=== PATIENT | male | born 1935 | race Caucasian/White ===

== ENCOUNTER 2017-06-23 17:53 | Observation (INO) ==
--- NOTE | 2017-06-23 18:29 | Emergency Department Note ---
Back Pain HPI - General Chief Complaint: Back Pain/Injury Stated Complaint: Weakness, immobility, back surgery yesterday. Time Seen by Provider: 06/23/17 18:28 Source: patient Limitations: no limitations - History of Present Illness HPI Narrative: This 81-year-old male comes to the emergency room after being checked out of the hospital today around 4 PM. He arrives in the hospital ER a little before 6 PM. He reports having a decompression spine surgery by Dr. Jackson yesterday. He was able to get up a couple of times afterwards, standing at bedside and using a walker. His right leg sometimes would give out. His left leg was not always strong enough to hold him but it was felt that he was able to use his walker at home adequately and safely. However, from being discharged in the hospital, in his driveway, trying to use his walker etc., he had his leg buckle again and he went to the ground and was on the ground for 15 or 20 minutes while his grandson summoned another grandson to get him up at least sitting on a cooler. EMS was summoned to bring him to the emergency room. He has difficulty raising his right knee as far as with strength. His surgery was because of multiple back problems and difficulties with walking any significant distance, walking hunched over, arthritis, ruptured disks, impingement. ROS: General: No fevers chills or sweats. No chest pain Some cough but no shortness of breath No abdominal pain nausea vomiting diarrhea or constipation No dysuria No rashes No headaches but some weakness as described above. He had no loss of consciousness. He is not on any blood thinners. Denies anxiety and depression. Has had significant fatigue. - Related Data Home Medications Medication Instructions Recorded Confirmed mycophenolate mofetil 500 mg tablet See Dose Instructions PO .COMPLEX 01/04/15 06/23/17 tab pyridostigmine bromide 60 mg tablet 120 mg PO TID tab 01/04/15 06/23/17 Oxybutynin Chloride [Oxybutynin 10 mg PO HS 06/23/17 06/23/17 Chloride ER] Previous Rx's Medication Instructions Recorded metoprolol tartrate 25 mg tablet 12.5 mg PO BID #90 tab 09/16/16 levothyroxine 88 mcg tablet 88 mcg PO QDAY #90 tab 05/15/17 HYDROcodone/APAP 10/325MG [Graford 1 - 2 tab PO Q4H PRN #50 tab 06/22/17 10/325Mg] Cephalexin [Keflex] 500 mg PO QID 5 Days #20 cap 06/23/17 Allergies Allergy/AdvReac Type Severity Reaction Status Date / Time Penicillins Allergy Intermediate Hives Verified 06/18/17 11:00 levofloxacin [From Levaquin] AdvReac Severe Contraindicated Verified 06/18/17 11 :00 r/t Myasthenia Gravis egg AdvReac Mild Nasal Verified 06/23/17 20:13 congestion lisinopril AdvReac Mild Cough Verified 06/23/17 20:13 milk AdvReac Mild Nasal Verified 06/23/17 20:13 congestion wheat AdvReac Mild Nasal Verified 06/23/17 20:13 congestion Yeast AdvReac Mild Nasal Verified 06/23/17 20:13 Congestion Past Medical History - Past Medical History Medical history: Reports: asthma, COPD, DM (But here today denies this.), hyperlipidemia, hypertension, obesity, osteoporosis, peripheral artery disease, thyroid disease, other (Myasthenia gravis for which he takes Mestinon and CellCept.). Denies: cancer, CVA, myocardial infarction, renal disease, TIA Psychiatric history: Denies: anxiety, depression Surgical history ED: Reports: orthopedic, other (Decompression lumbar spine, 06-22, Dr. Jackson. Fusion of lower lumbar segment 1972), tonsillectomy (And adenoidectomy), other (2 prostate ablations. ) - Social History smoking status: Never smoker (But had a lot of secondhand exposure.) Alcohol use: Reports: Rarely (2-3 times per month) Physical Exam Limitations: no limitations General appearance: alert, in no apparent distress Head: atraumatic, normocephalic Eye: Present: normal appearance, PERRL, EOMI. Absent: scleral icterus, conjunctival injection ENT: normal oropharynx, mucous membranes moist, other (Normal midline structures ) Neck: Present: trachea midline. Absent: lymphadenopathy, thyromegaly Respiratory: Present: normal lung sounds bilaterally. Absent: respiratory distress, wheezes, stridor, accessory muscle use, prolonged expiratory phase Cardiovascular: Present: regular rate, normal rhythm. Absent: systolic murmur, diastolic murmur Abdominal: Present: soft. Absent: distention, tenderness, guarding, rebound, rigidity, organomegaly, mass Neurological: Present: alert, oriented X3, other (Has decrease in his hip flexors on the right compared to the left.) Psychiatric: Present: normal affect, normal mood Skin: Present: warm, dry Course Vital Signs Temperature 98.4 F 06/23/17 17:55 Pulse Rate 82 06/23/17 17:55 Respiratory Rate 18 06/23/17 17:55 Blood Pressure 144/126 06/23/17 17:55 Pulse Oximetry (%) 95 06/23/17 17:55 Temperature 97.6 F 06/24/17 06:21 Pulse Rate 64 06/24/17 04:00 Respiratory Rate 18 06/24/17 06:21 Blood Pressure 165/55 06/24/17 06:21 Pulse Oximetry (%) 93 06/24/17 07:42 Back Pain/Injury - MDM Narrative Medical decision making narrative: I discussed case with Dr. Jackson who recommended MRI which was eventually able to be done here in this hospital and did not find additional compressive structures or concerns or problems. Dr. Jackson's PA, Adolfo, kindly reviewed and accepted this patient's care inpatient for Dr. Jackson for at least an overnight stay to reevaluate and arrange additional follow-up and/or treatment. Disposition Pt seen by FABRIC WORKER/PA only: No Clinical Impression: Weakness, Status post lumbar spine surgery for decompression of spinal cord Fall Qualifiers: Encounter type: initial encounter Qualified Code(s): W19.XXXA - Unspecified fall, initial encounter Disposition: Xfer As Outpt/Obs ([facility]) Condition: Fair
[2017-06-23] MEDS ORDERED: METHOCARBAMOL 750 MG TABLET PO PRN (19:03)
--- NOTE | 2017-06-23 20:29 | Consultation ---
DATE OF CONSULTATION: 06/23/[address] Emergency [address] Dr. Eliezer Jackson on the patient, an 81-year-old male. ADMITTING DIAGNOSIS: Back pain, post-lumbar spinal surgery with right lower extremity weakness. HISTORY OF PRESENT ILLNESS: This pleasant 81-year-old male was discharged from the Med/Surg at [facility] earlier today following a lumbar decompression surgery at L5 by Dr. Eliezer Jackson. The patient was discharged in a stable condition, and upon arriving home was transferring out of the vehicle and developed significant right leg weakness which rendered him unable to stand. Two of his grandsons were then able to help get him back to his feet. He continued to complain of significant right-sided weakness that never went away, and for that reason, the family members, including his 2 daughters, transported him back to [facility] emergency department for further evaluation. The patient was evaluated in the emergency department and found to be stable, other than some noticeable right-sided lower extremity weakness and did not complain of other remarkable review of systems, which included no fever, sweats, chills, chest pain, syncope, shortness of breath, abdominal pain, nausea, vomiting, diarrhea, melena, hematochezia, slurred speech, or other remarkable review of systems, other than positive review of systems mentioned previously. HOME MEDICATIONS: Mycophenolate mofetil 500 mg tablets. Pyridostigmine bromide 60 mg tablets 3 times a day. Metoprolol. Oxybutynin. Levothyroxine. Hydrocodone. Was on Keflex. ALLERGIES: The patient has known allergies to PENICILLINS, EGGS, MILK, WHEAT, LEVOTHYROXINE, LISINOPRIL and LUU'S YEAST. FAMILY HISTORY: Remarkable for diabetes, hyperlipidemia, hypertension, peripheral artery disease, osteoporosis, asthma, thyroid disease, COPD. SURGICAL HISTORY: Includes prior lumbar fusion surgery with lumbar decompression as well as 2 prostate ablation surgeries. SOCIAL HISTORY: Includes he has a who is also disabled and two daughters that are currently looking after him. He is a nonsmoker and rarely uses alcohol. PHYSICAL EXAMINATION: GENERAL: Demonstrates a well-developed, well-nourished 81-year-old male, awake, alert, oriented times 3. Appears to be in no apparent distress, sitting comfortably upon the gurney. VITAL SIGNS: Upon initial evaluation, his vital signs are stable. Temperature 98.4, pulse 82, respirations 18, blood pressure 144/126, pulse oximetry 95 percent on room air. Vitals were repeated serially in the ED and remained stable. HEENT: Head was normocephalic. Pupils equal, round, reactive to light. No nystagmus or strabismus. EOMs within normal limits. Oropharynx was normal with normal gag reflex. He had grossly intact normal cranial nerve function. NECK: Supple. No adenopathy or thyromegaly. LUNGS: Clear to auscultation. No wheezing. No rhonchi or rales. CARDIAC: Normal sinus rhythm. No gallops, rubs, or murmurs. ABDOMEN: Soft and nontender. MUSCULOSKELETAL EXAM: The patient did have noticeably weaker hip flexors in the right lower extremity with quad function and hamstring function. Would grade this all 3/5 compared to 4+/5 on the left side. He did have grossly intact dorsiflexor and plantarflexors, EHLs. He had no ankle clonus or myelopathic findings on examination. MEDICAL DECISION MAKING AND EMERGENCY ROOM COURSE: We were able to get the patient in for a stat lumbar MRI to rule out a postsurgical epidural hematoma or other recurrent neural foraminal stenotic lesion that could be contributing to this. This was set up. The patient was taken down to MRI immediately and evaluated there. Dr. Jackson has been involved in the patient's care and his recommendation was to have the patient admitted to the Med/Surg hospital floor overnight for observation and to have a Hospitalist consult to manage his medications. Further orthopedic spine surgical recommendations will be made here after assessment, one day posthospital discharge following lumbar decompression surgery by Dr. Jackson with acute onset of right lower extremity motor weakness. PLAN: MRI pending results at this time and admit to the hospital floor. BAP:[email or web address] Job ID: [id number] Doc ID: [id number] Luis Mendoza PA-C
--- NOTE | 2017-06-23 20:34 | Orthopedic Progress Note ---
Subjective Patient information: Note initiated : 06/23/17 at 8:31 pm Service Date, if different from initiated Date: [] Patient: Issac Upton 81 y/o M admitted on 06/23/17 for Weakness, immobility , back surgery yesterday.. Chief Complaint: patient presents with R LE weakness to hip flexion. In post surgery yesterday he reports to have ambulated to bathroom with minimal assistance and no weakness R LE. weakness then increased several hours post recovery. Today at home he fell and had ongoing weakness Objective Vital signs: Vital Signs Temp Pulse Resp BP Pulse Ox 06/23/17 18:46 76 141/71 94 06/23/17 18:35 68 138/64 95 06/23/17 17:55 98.4 F 82 18 144/126 95 Intake and Output 06/23/17 06/23/17 06/23/17 05:59 13:59 21:59 Other: Weight 235 lb Patient Weight 06/24/17 05:59 Weight 235 lb Intake & Output: Intake & Output 06/23/17 06/23/17 06/23/17 05:59 13:59 21:59 Weight 235 lb Neurological exam IM: Yes motor sensory deficit (weakness to hip flexion) Assessment and Plan (1) Spinal stenosis of lumbar region unexplained weakness. admitted as patient unable to care for self. MRI shows no hematoma or increased areas of neural compression. He does have extensive degenerative changes and disc herniations, but fairly well decompressed around these. overall improved canal dimensions. will observe. Status: Acute
[2017-06-23] MEDS ORDERED: HYDROcodone/APAP 10/325MG TABLET PO PRN (21:42)
[2017-06-23] MEDS: DOCUSATE SODIUM 100 MG CAPSULE PO SCH (22:48)
[2017-06-23] MEDS: METOPROLOL TARTRATE 25 MG TABLET PO SCH (22:48)
[2017-06-23] MEDS: OXYBUTYNIN CHLORIDE 5 MG TAB.XL.24H PO SCH (22:48)
[2017-06-23] MEDS: MYCOPHENOLATE 250 MG CAPSULE PO SCH (22:49)
[2017-06-23] MEDS: predniSONE 20 MG TABLET PO SCH (22:55)
--- NOTE | 2017-06-24 06:56 | Orthopedic Progress Note ---
Subjective Patient information: Note initiated : 06/24/17 at 6:53 am Service Date, if different from initiated Date: [] Patient: Issac Upton 81 y/o M admitted on 06/23/17 for Weakness, immobility , back surgery yesterday.. Chief Complaint: [RLE weakness, S/P lumbar decompression] Patient was readmitted due to RLE weakness s/p lumbar decompression. His weakness does seem to be approving though he has not ambulated. He denies any lower extremity paresthesias, bowel/bladder incontinence, or saddle anesthesias. Objective Vital signs: Vital Signs Temp Pulse Pulse Resp BP BP Pulse Ox 06/24/17 06:21 97.6 F 18 165/55 95 06/24/17 04:00 97.2 F 64 12 160/74 93 06/23/17 23:35 99.1 F H 71 12 135/65 93 06/23/17 18:46 76 141/71 94 06/23/17 18:35 68 138/64 95 06/23/17 17:55 98.4 F 82 18 144/126 95 Intake and Output 06/23/17 06/24/17 06/24/17 21:59 05:59 13:59 Intake Total 590 / 590 Output Total 1680 / 1680 450 / 450 Balance -1090 / -1090 -450 / -450 Intake: Oral 590 / 590 Output: Drainage 55 / 55 Back 55 / 55 Void Amount 1625 / 1625 450 / 450 Other: # Voids 1 1 Weight 235 lb Intake & Output: Intake & Output 06/23/17 06/24/17 06/24/17 21:59 05:59 13:59 Intake Total 590 / 590 Output Total 1680 / 1680 450 / 450 Balance -1090 / -1090 -450 / -450 Weight 235 lb Intake: Oral 590 / 590 Output: Drainage 55 / 55 Back 55 / 55 Void Amount 1625 / 1625 450 / 450 Other: # Voids 1 1 Incision: Yes healing, Yes clean and dry Incision clean and dry: Yes Dressing: Yes clean, Yes dry, Yes intact Neurological exam IM: Yes alert, Yes motor sensory intact, Yes neurovascular intact (He does have weakness with hip flexion of the RLE.) Extremities exam IM: Yes neurovascular intact Assessment and Plan (1) Spinal stenosis of lumbar region MRI does not show any acute changes s/p lumbar decompression. Ambulate with PT today. D/c drain and replace with dry dressing. Status: Acute
[2017-06-24] MEDS: LEVOTHYROXINE 88 MCG TABLET PO SCH (07:06)
[2017-06-24] MEDS: METOPROLOL TARTRATE 25 MG TABLET PO SCH ×2 (09:01→21:27)
[2017-06-24] MEDS: predniSONE 20 MG TABLET PO SCH ×2 (09:01→17:17)
[2017-06-24] MEDS: DOCUSATE SODIUM 100 MG CAPSULE PO SCH ×2 (09:01→21:27)
[2017-06-24] MEDS: PYRIDOSTIGMINE 60 MG TABLET PO SCH ×3 (09:03→21:30)
[2017-06-24] MEDS: MYCOPHENOLATE 250 MG CAPSULE PO SCH ×2 (13:07→23:57)
[2017-06-24] MEDS: CEPHALEXIN 250 MG CAPSULE PO SCH ×3 (13:07→21:28)
[2017-06-24] MEDS: OXYBUTYNIN CHLORIDE 5 MG TAB.XL.24H PO SCH (21:27)
--- NOTE | 2017-06-25 07:49 | Orthopedic Progress Note ---
Subjective Patient information: Note initiated : 06/25/17 at 7:45 am Service Date, if different from initiated Date: [] Patient: Issac Upton 81 y/o M admitted on 06/23/17 for Weakness, Immobility , Back Surgery Yesterday. Chief Complaint: [] walked better yesterday afternoon. continues to have R LE weakness. no good explanation Objective Vital signs: Vital Signs Temp Pulse Pulse Resp BP BP Pulse Ox 06/25/17 07:18 97.7 F 61 18 144/73 95 06/25/17 07:02 60 06/25/17 04:00 98.9 F 58 L 18 141/76 96 06/25/17 00:00 99.0 F H 62 16 151/74 94 06/24/17 20:00 99.2 F H 64 18 146/75 93 06/24/17 15:34 98.9 F 18 138/69 95 06/24/17 12:00 98.3 F 18 167/83 95 Intake and Output 06/24/17 06/25/17 06/25/17 21:59 05:59 13:59 Intake Total 800 / 800 200 / 200 Output Total 550 / 550 475 / 475 Balance 250 / 250 -275 / -275 Intake: Oral 800 / 800 200 / 200 Output: Void Amount 550 / 550 475 / 475 Other: Weight 234 lb Intake & Output: Intake & Output 06/24/17 06/25/17 06/25/17 21:59 05:59 13:59 Intake Total 800 / 800 200 / 200 Output Total 550 / 550 475 / 475 Balance 250 / 250 -275 / -275 Weight 234 lb Intake: Oral 800 / 800 200 / 200 Output: Void Amount 550 / 550 475 / 475 Neurological exam IM: Yes motor sensory deficit (R LE weakness, yesterday did not have real obvious quad weakness but 4/5 this AM. ) Assessment and Plan (1) Spinal stenosis of lumbar region unexplained weakness. admitted as patient unable to care for self. MRI shows no hematoma or increased areas of neural compression. He does have extensive degenerative changes and disc herniations, but fairly well decompressed around these. overall improved canal dimensions. will observe. Continued weakness but seems to fluctuate with severity? Do not feel there is any intervention to consider. continue therapy and ambulation. will try knee ranger locked Status: Acute
[2017-06-25 08:54] LABS: Mean Cell Volume 91.8 fL (80.0-100.0); Mean Corpuscular HGB Conc 32.7 g/dL (31.0-36.0); Platelet Count 243 K/mcL (140-440); RBC 4.83 M/mcL (4.50-5.90); Red Cell Distribution Width 15.1 % (11.5-14.5)
[2017-06-25 09:27] LABS: ALT/SGPT 15 U/l (0-40); Albumin 4.5 gm/dL (3.2-5.2); Albumin/Globulin Ratio 1.3 (1.0-2.3); Alkaline Phosphatase 74 U/L (39-117); Blood Urea Nitrogen 26 mg/dl (8-23)
[2017-06-25 09:31] LABS: Lymphocytes % 11 % (15-49); Monocytes % (Manual) 6 % (1-12); Platelet Estimate NORMAL (NORMAL); RBC Morphology NORMAL (NORMAL); Segmented Neutrophils % 82 % (38-78)
[2017-06-25] MEDS: predniSONE 20 MG TABLET PO SCH ×2 (09:35→17:33)
[2017-06-25] MEDS: DOCUSATE SODIUM 100 MG CAPSULE PO SCH ×2 (09:35→20:04)
[2017-06-25] MEDS: METOPROLOL TARTRATE 25 MG TABLET PO SCH ×2 (09:35→20:05)
[2017-06-25] MEDS: CEPHALEXIN 250 MG CAPSULE PO SCH ×4 (09:36→20:05)
[2017-06-25] MEDS: PYRIDOSTIGMINE 60 MG TABLET PO SCH ×3 (09:37→20:05)
[2017-06-25] MEDS: LEVOTHYROXINE 88 MCG TABLET PO SCH (09:40)
--- NOTE | 2017-06-25 10:18 | Magnetic Resonance Report ---
CLINICAL INFORMATION: Postop multilevel decompression laminectomy. Right leg pain and bladder incontinence COMPARISON: Preoperative lumbar MRI - 04/27/2017 TECHNIQUE: Sagittal T1 FLAIR, STIR, fast spin echo T2, axial T2 weighted images were acquired. FINDINGS: The lumbar spine remains anatomically aligned. There are now wide decompression laminectomy changes at L2-3 and L3-4 with minimal edema at the surgical site. No associated marrow signal abnormality. Conus medullaris ends at T12 and is homogeneous signal. Cauda equina roots are normal. There is marked distention of the urinary bladder. There is also a 11 mm cyst inferior right kidney. At T11-T12, a moderate broad disc extrusion mildly impinges the thecal sac which is unchanged At T12-L1, a moderate broad disc protrusion impinges the thecal sac resulting in mild central canal stenosis. This is unchanged. At L1-2, mild broad disc protrusion with left-sided asymmetry is appreciated. At this level, there is also a moderate extruded component dissecting inferiorly beneath the posterior longitudinal ligament. This is new from the previous study and does impinge the thecal sac and the left cauda equina roots. At L2-3, moderate broad disc protrusion with right-sided asymmetry results in mild right lateral recess/IV foraminal narrowing mildly impinging the exiting right L2 and descending right L3 nerve root. This is unchanged. Central canal appears capacious following decompression laminectomy. At L3-4, moderate broad disc protrusion with left-sided asymmetry results in moderate left IV foraminal narrowing impinging the exiting left L3 nerve root - this is unchanged. Central canal is capacious following decompression laminectomy. At L4-5, there is mild annular bulge. There is marked facet arthropathy resulting in moderate central canal narrowing but this is unchanged. At L5-S1, moderate broad disc protrusion facet arthropathy results in mild central canal and bilateral lateral recess and IV foraminal narrowing. IMPRESSION: 1. Interval L2-3 and L3-4 decompression laminectomies - typical postoperative change. Central canal at each of these levels is now capacious 2. L1-2: Broad disc protrusion with a new large extruded component dissecting inferiorly in the the posterior longitudinal ligament with impinges the left anterior thecal sac and the left anterior cauda equina roots. 3. Multilevel degenerative change in the remaining levels as described 4. Marked distention of the urinary bladder. Interpreted and Authenticated by: Nhan Moncada 06/25/17
[2017-06-25] MEDS: MYCOPHENOLATE 250 MG CAPSULE PO SCH (11:52)
--- NOTE | 2017-06-25 16:05 | XRay Report ---
CLINICAL INFORMATION: Cough COMPARISON: 09/11/2016 FINDINGS: Borderline cardiomegaly is unchanged. Mediastinum and pulmonary vessels are normal for the lungs are clear. No effusions. Bones soft tissues are normal IMPRESSION: Hairline cardiomegaly Interpreted and Authenticated by: Nhan Moncada 06/25/17
[2017-06-25 18:33] LABS: Appearance,Urine CLEAR; Bilirubin,Urine NEG (NEG); Color,Urine STRAW; Glucose,Urine (UA) NEGATIVE (NEG); Leukocyte Esterase,Urine NEG /uL (NEG); Protein,Urine NEG (NEG); Specific Gravity,Urine 1.015 (1.000-1.035); Urine Blood NEG mg/dL (<0.03); Urobilinogen,Urine NEG (NEG)
[2017-06-25] MEDS: OXYBUTYNIN CHLORIDE 5 MG TAB.XL.24H PO SCH (20:05)
[2017-06-26] MEDS: MYCOPHENOLATE 250 MG CAPSULE PO SCH
[2017-06-26] MEDS ORDERED: HYDROcodone/APAP 10/325MG TABLET PO PRN (06:54)
[2017-06-26] MEDS: predniSONE 20 MG TABLET PO SCH (08:12)
[2017-06-26] MEDS: METOPROLOL TARTRATE 25 MG TABLET PO SCH (08:12)
[2017-06-26] MEDS: DOCUSATE SODIUM 100 MG CAPSULE PO SCH (08:12)
[2017-06-26] MEDS: CEPHALEXIN 250 MG CAPSULE PO SCH (08:13)
[2017-06-26] MEDS: LEVOTHYROXINE 88 MCG TABLET PO SCH (08:21)
[2017-06-26] MEDS: PYRIDOSTIGMINE 60 MG TABLET PO SCH (08:22)
--- NOTE | 2017-06-26 08:22 | Discharge Summary ---
DATE OF ADMISSION: 06/23/2017 DATE OF DISCHARGE: ADMITTING DIAGNOSIS: Lumbar stenosis with neurogenic claudication. DISCHARGE DIAGNOSIS: Lumbar stenosis with neurogenic claudication. REASON FOR ADMISSION: Patient admitted for operative treatment of above. ADMITTING PHYSICIAN: Eliezer Jackson M.D. CONSULTING PHYSICIAN: None, although Dr. Nico Falcon did see the gentleman in the hospital and provided assistance. PROCEDURE: Patient was taken to the operating room on the date of admission where he underwent a lumbar decompression L1 through L4. HOSPITAL COURSE: The patient was admitted for his surgical procedure. The surgery went well and was uneventful without complication. He was then transferred to post-recovery, and the patient apparently ambulated to the bathroom on several occasions with__ __ difficulty. However, I was called just prior to his discharge with the suggestion that the patient felt that his right leg was weak, and he was having a hard time bearing weight on the right lower extremity. I evaluated this patient. He had some vague pain with hip flexion and some vague weakness. We elected to keep him overnight for observation. The next morning he was continuing with said weakness but expected that this would continue to resolve spontaneously, and the patient was discharged to home. He then re-presented several hours later with a chief complaint of being unable to bear weight and the leg had caused him to be nearly fallen on several occasions. He was again placed in the hospital as he really had no care at home, and evaluation to include a lumbar MRI scan was done. The MRI scan showed a very adequate decompression. He does have extensive degenerative changes with some disc herniations that we specifically did not address surgically, and these were not something that we felt we should go after surgically. He was gradually mobilized with physical therapy and has made some progress with strength. We did try a knee ranger locked in extension as he seems to have some vague quad weakness as well. 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 The explanation for his weakness is still not understood. He nonetheless does seem to have made some progress, is able to ambulate with a walker, but does have pain with initiating forward flexion of the hip and again weakness. The weakness is hard to understand if this is from pain inhibition or true weakness but it has caused his leg to give way, and he is still somewhat limited in his ability to ambulate. The patient is now transferred to a care facility for further rehabilitation. I will see him back in the office on discharge from rehabilitation facility. KRISTIE:zoe Job ID: [id number] Doc ID: [id number] Eliezer Jackson MD
[2017-06-26] MEDS ORDERED: METOPROLOL TARTRATE 25 MG TABLET PO SCH (09:00)
[2017-06-26] MEDS ORDERED: LEVOTHYROXINE 88 MCG TABLET PO SCH (09:00)
[2017-06-26] MEDS ORDERED: PYRIDOSTIGMINE 60 MG TABLET PO SCH (09:00)
[2017-06-26] MEDS ORDERED: OXYBUTYNIN CHLORIDE PO SCH (21:00)
--- NOTE | 2017-06-27 16:32 | Magnetic Resonance Report ---
CLINICAL INFORMATION: Pain right SI joint COMPARISON: Pelvic MRI from 10 months prior - 08/25/2016. TECHNIQUE 10 cm [id number] axial T1 and T2 coronal T1-T2 and STIR sagittal T1 and T2-weighted images obtained through the sacrum. Axial T1 and coronal STIR images were obtained the entire pelvis FINDINGS: In the former region of high signal within the right sacral ala, there is now a smaller (3.7 cm) region of low signal with extension to the posterior right SI joint and the periarticular ileum. The posterior aspect of the SI joint is widened - suspect granulation tissue or fibrosis in this region. The left SI joint is unremarkable. Both hips are normal. There is been near complete normalization of signal within the right superior pubic ramus and pubic symphysis A massive (13 cm) cyst projects from the inferior pole right kidney which is stable. Prostate is unremarkable measurin.9 x 5.7 cm. The visualized small and large bowel is normal. Signal within the muscle and fascial planes has largely normalized previous study. There is a small region of increased signal in the right lateral gluteal musculature which is unchanged IMPRESSION: Moderate (3.7 cm) region of low signal in the periarticular right sacral ala with extension into the SI joint and periarticular right ilium. Previously, this represented high signal. This would imply that the active inflammation, previously seen in this region, has subsided has evolved into calcification or fibrosis. If the patient does have pain specifically to the right SI joint on physical exam, then consider CT-guided aspiration of the SI joint and concomitant injection glucocorticoids and Marcaine. This may be both diagnostic and therapeutic value Interpreted and Authenticated by: Nhan Moncada 06/27/17
== END 2017-06-26 10:20 ==
LOC: ED 17:53 → MEDSUR 20:04 → INTOOBSV 20:04
PROVIDERS: ADMIT Orthopaedic Surgery Orthopaedic Surgery of the Spine; ATTEND Orthopaedic Surgery Orthopaedic Surgery of the Spine

== ENCOUNTER 2017-08-24 20:34 | Inpatient (IN) ==
[2017-08-24] MEDS: 0.9 % SODIUM CHLORIDE 1,000 ML IV SCH (21:32)
--- NOTE | 2017-08-24 22:01 | Emergency Department Note ---
General Adult HPI - General Chief complaint: Urogenital-Male Stated complaint: Thinks has bladder infection Time Seen by Provider: 08/24/17 20:51 Mode of arrival: wheelchair - History of Present Illness HPI Narrative: 82YOM presents to the clinic for increased frequency of urination and "ice cold " chills. States that back in February he has a similar complaint and he was brought into the ER and was found to be septic. Admitted at [facility] for 4 days and then sent home. Family is with him here today and is concerned that he is septic based on their last episode with similar urinary symptoms. He reports increased frequency, dribbling, as well as decreased R leg strength and family reports brain fog and not quite being himself. Hx of myasthenia gravis, sepsis , UTI, and back surgery that was 3 months ago. Is not consistent with medical interventions. (entered by HARISH Salguero, agree with HPI- NE) Associated symptoms: Reports: loss of appetite, malaise, weakness. Denies: cough, shortness of breath, syncope - Related Data Home Medications Medication Instructions Recorded Confirmed mycophenolate mofetil 500 mg tablet See Dose Instructions PO .COMPLEX 01/04/15 08/24/17 tab pyridostigmine bromide 60 mg tablet 120 mg PO TID tab 01/04/15 08/24/17 Gabapentin [Neurontin] 300 mg PO TID 08/24/17 08/24/17 Previous Rx's Medication Instructions Recorded metoprolol tartrate 25 mg tablet 12.5 mg PO BID #90 tab 09/16/16 levothyroxine 88 mcg tablet 88 mcg PO QDAY #90 tab 05/15/17 oxybutynin chloride ER 10 mg 10 mg PO HS #90 tab 07/31/17 tablet,extended release 24 hr Allergies Allergy/AdvReac Type Severity Reaction Status Date / Time Penicillins Allergy Intermediate Hives Verified 08/10/17 13:28 levofloxacin [From Levaquin] AdvReac Severe Contraindicated Verified 08/10/17 13 :28 r/t Myasthenia Gravis egg AdvReac Mild Nasal Verified 08/10/17 13:28 congestion lisinopril AdvReac Mild Cough Verified 08/10/17 13:28 milk AdvReac Mild Nasal Verified 08/10/17 13:28 congestion wheat AdvReac Mild Nasal Verified 08/10/17 13:28 congestion Yeast AdvReac Mild Nasal Verified 08/10/17 13:28 Congestion Review of Systems All systems ED: reviewed and negative except as stated. 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) Spinal stenosis of lumbar region (Chronic) Acute prostatitis with hematuria (Resolved) Tinnitus (Chronic) Tachycardia (Chronic) Sinusitis (Resolved) Rhinitis, chronic (Chronic) RAD (reactive airway disease) (Chronic) PVD (peripheral vascular disease) (Chronic) Patent foramen ovale (Chronic) Paresthesias (Chronic) Orthostasis (Chronic) Obesity (Chronic) Myasthenia gravis without (acute) exacerbation (Chronic) Muscle cramps (Chronic) IBS (irritable bowel syndrome) (Chronic) Hypothyroidism (Chronic) Hypertension, essential, benign (Chronic) Hyperlipidemia (Chronic) Hemorrhoids (Chronic) Hearing loss (Chronic) Headache (Chronic) Osteoarthritis of lumbar spine (Chronic) Diverticulosis of colon (Chronic) 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) DM type 2 (diabetes mellitus, type 2) (Chronic) DDD (degenerative disc disease) (Chronic) Cough (Chronic) Cellulitis and abscess of trunk (Resolved) Bronchitis, acute (Resolved) Asthma (Chronic) Allergic rhinitis (Chronic) Diverticulitis of colon (Inactive) Methicillin susceptible Staphylococcus aureus infection (Inactive) Past Surgical History (Last Reviewed 08/10/17 @ 13:29 by Gilma Phillips RN) History of colonoscopy (Chronic) Hx of decompressive lumbar laminectomy (Acute) H/O Spinal surgery (Resolved) S/P tonsillectomy and adenoidectomy (Resolved) History of back surgery (Inactive) History of lumbar fusion (Inactive) History of toe surgery (Inactive) History of tonsillectomy (Inactive) Medical history: Reports: asthma, COPD, DM (But here today denies this.), hyperlipidemia, hypertension, obesity, osteoporosis, peripheral artery disease, thyroid disease, other (Myasthenia gravis for which he takes Mestinon and CellCept.). Denies: cancer, CVA, myocardial infarction, renal disease, TIA Surgical history ED: Reports: orthopedic, other (Decompression lumbar spine, 06-22, Dr. Jackson. Fusion of lower lumbar segment 1972), tonsillectomy (And adenoidectomy), other (2 prostate ablations. ) - Social History smoking status: Never smoker Alcohol use: Reports: Rarely (2-3 times per month) Drug use: Reports: none Course Course Narrative: @ [address] Garcia and Dr. Garcia to assume care due to shift change. Vital Signs Temperature 98.4 F 08/24/17 20:35 Pulse Rate 97 H 08/24/17 20:35 Respiratory Rate 18 08/24/17 20:35 Blood Pressure 100/56 08/24/17 20:35 Pulse Oximetry (%) 93 08/24/17 20:35 Temperature 98.4 F 08/24/17 20:35 Pulse Rate 97 H 08/24/17 20:35 Respiratory Rate 18 08/24/17 20:35 Blood Pressure 100/56 08/24/17 20:35 Pulse Oximetry (%) 93 08/24/17 20:35 Medical Decision Making - Lab Data Result diagrams: 08/24/17 21:18 08/24/17 21:18 Disposition Pt seen by HOLLOW CORE DOOR FRAME ASSEMBLER/PA only: No Condition: Fair Referrals: Nico Falcon MD [Primary Care Provider] -
[2017-08-24 22:34] LABS: Basophils # (Auto) 0 K/mcL (0.0-0.3); Basophils % (Auto) 0.1 % (0.0-2.0); Eosinophils # (Auto) 0 K/mcL (0.0-0.7); Eosinophils % (Auto) 0 % (0.0-7.0); Granulocytes % (Auto) 86.6 % (38.0-78.0); Lymphocytes # (Auto) 1.3 K/mcL (1.5-4.8); Lymphocytes % (Auto) 5.7 % (15.5-49.0); Mean Cell Volume 91.3 fL (80.0-100.0); Mean Corpuscular HGB Conc 32.4 g/dL (31.0-36.0); Mean Corpuscular Hemoglobin 29.6 pg (26.0-34.0); Monocytes # (Auto) 1.7 K/mcL (0.1-0.9); Monocytes % (Auto) 7.6 % (1.0-12.0); Platelet Count 182 K/mcL (140-440); Red Cell Distribution Width 14.4 % (11.5-14.5)
[2017-08-24 22:47] LABS: ALT/SGPT 15 U/l (0-40); Albumin 4.3 gm/dL (3.2-5.2); Albumin/Globulin Ratio 1.2 (1.0-2.3); Alkaline Phosphatase 83 U/L (39-117); Blood Urea Nitrogen 18 mg/dl (8-23)
[2017-08-24] MEDS ORDERED: cefTRIAXone 1 GM VIAL IV ONE (23:00)
[2017-08-24 23:12] LABS: Appearance,Urine TURBID; Bilirubin,Urine NEG (NEG); Color,Urine YELLOW; Glucose,Urine (UA) NORM (NEG); Leukocyte Esterase,Urine 2+ (MODERATE) /uL (NEG); Protein,Urine 100 (2+) mg/dL (NEG); Specific Gravity,Urine 1.015 (1.000-1.035); Urine Blood 3+ (LARGE) mg/dL (<0.03); Urobilinogen,Urine NORM (NEG)
[2017-08-24 23:13] LABS: Bacteria,Urine 4+ /hpf (0); Urine RBC > 182 /hpf (0-1); Urine Squamous Epithelial Cell 0 /hpf (0-4); Urine WBC > 182 /hpf (0-4)
--- NOTE | 2017-08-24 23:36 | Emergency Department Note ---
Male Urogenital HPI - General Chief complaint: Urogenital-Male Stated complaint: Thinks has bladder infection Time Seen by Provider: 08/24/17 20:51 Mode of arrival: wheelchair - Related Data Home Medications Medication Instructions Recorded Confirmed mycophenolate mofetil 500 mg tablet See Dose Instructions PO .COMPLEX 01/04/15 08/24/17 tab pyridostigmine bromide 60 mg tablet 120 mg PO TID tab 01/04/15 08/24/17 Gabapentin [Neurontin] 300 mg PO TID 08/24/17 08/24/17 Previous Rx's Medication Instructions Recorded metoprolol tartrate 25 mg tablet 12.5 mg PO BID #90 tab 09/16/16 levothyroxine 88 mcg tablet 88 mcg PO QDAY #90 tab 05/15/17 oxybutynin chloride ER 10 mg 10 mg PO HS #90 tab 07/31/17 tablet,extended release 24 hr Allergies Allergy/AdvReac Type Severity Reaction Status Date / Time Penicillins Allergy Intermediate Hives Verified 08/10/17 13:28 levofloxacin [From Levaquin] AdvReac Severe Contraindicated Verified 08/10/17 13 :28 r/t Myasthenia Gravis egg AdvReac Mild Nasal Verified 08/10/17 13:28 congestion lisinopril AdvReac Mild Cough Verified 08/10/17 13:28 milk AdvReac Mild Nasal Verified 08/10/17 13:28 congestion wheat AdvReac Mild Nasal Verified 08/10/17 13:28 congestion Yeast AdvReac Mild Nasal Verified 08/10/17 13:28 Congestion Past Medical History - Past Medical History Medical history: Reports: asthma, COPD, DM (But here today denies this.), hyperlipidemia, hypertension, obesity, osteoporosis, peripheral artery disease, thyroid disease, other (Myasthenia gravis for which he takes Mestinon and CellCept.). Denies: cancer, CVA, myocardial infarction, renal disease, TIA Surgical history ED: Reports: orthopedic, other (Decompression lumbar spine, 06-22, Dr. Jackson. Fusion of lower lumbar segment 1972), tonsillectomy (And adenoidectomy), other (2 prostate ablations. ) - Social History smoking status: Never smoker Alcohol use: Reports: Rarely (2-3 times per month) Drug use: Reports: none Course Vital Signs Temperature 98.4 F 08/24/17 20:35 Pulse Rate 97 H 08/24/17 20:35 Respiratory Rate 18 08/24/17 20:35 Blood Pressure 100/56 08/24/17 20:35 Pulse Oximetry (%) 93 08/24/17 20:35 Temperature 98.4 F 08/24/17 20:35 Pulse Rate 81 08/24/17 23:11 Respiratory Rate 18 08/24/17 20:35 Blood Pressure 115/56 08/24/17 23:09 Pulse Oximetry (%) 94 08/24/17 23:11 Urogenital-Male - MDM Narrative Medical decision making narrative: Workup from minor care continue from [facility]. WBC count is elevated at 23,000 lactic acid also elevated at 3.2 urine shows greater than 183 WBCs and RBCs culture and sensitivity is pending as are remaining stable at 115/56 and the heart rate is 85 . [facility] contacted and patient to be admitted on IV Rocephin is allergic to Levaquin and penicillin - Lab Data Result diagrams: 08/24/17 21:18 08/24/17 21:18 Lab Results 08/24/17 08/24/17 08/24/17 Range/Units 21:15 21:18 21:18 WBC 23.0 H (4.5-11.0) K/mcL RBC 4.70 (4.50-5.90) M/mcL Hgb 13.9 (13.5-16.5) g/dL Hct 42.9 (41.0-55.0) % MCV 91.3 (80.0-100.0) fL MCH 29.6 (26.0-34.0) pg MCHC 32.4 (31.0-36.0) g/dL RDW 14.4 (11.5-14.5) % Plt Count 182 (140-440) K/mcL MPV 9.3 (7.4-10.4) fL Gran % 86.6 H (38.0-78.0) % Lymph % (Auto) 5.7 L (15.5-49.0) % [place] % (Auto) 7.6 (1.0-12.0) % Eos % (Auto) 0 (0.0-7.0) % Baso % (Auto) 0.1 (0.0-2.0) % Gran # 19.9 H (1.8-8.0) K/mcL Lymph # (Auto) 1.3 L (1.5-4.8) K/mcL Routt # (Auto) 1.7 H (0.1-0.9) K/mcL Eos # (Auto) 0 (0.0-0.7) K/mcL Baso # (Auto) 0 (0.0-0.3) K/mcL Band Neutrophils % VBG Lactic Acid (0.5-2.2) mmol/L Sodium 136 (133-145) mmol/L Potassium 4.1 (3.3-5.1) mmol/L Chloride 96 (96-108) mmol/L Carbon Dioxide 22 (22-30) mmol/L Anion Gap 18.0 H (8-16) BUN 18 (8-23) mg/dl Creatinine 1.6 H (0.7-1.2) mg/dl GFR Calculation 40 Glucose 109 H (70-105) mg/dL Calcium 9.0 (8.6-10.4) mg/dl Total Bilirubin 0.9 (0.0-1.0) mg/dL AST 23 (0-37) U/l ALT 15 (0-40) U/l Alkaline Phosphatase 83 (39-117) U/L Total Protein 7.9 (5.9-8.4) gm/dL Albumin 4.3 (3.2-5.2) gm/dL Globulin 3.6 (2.2-3.7) gm/dL Albumin/Globulin Ratio 1.2 (1.0-2.3) Urine Color Yellow Urine Appearance Turbid Urine pH 5.0 (5.0-9.0) Ur Specific [place] 1.015 (1.000-1.035) Urine Protein 100 (2+) (NEG) mg/dL Urine Glucose (UA) Norm (NEG) mg/dL Urine Ketones Neg (NEG) mg/dL Urine Occult Blood 3+ (large) (<0.03) mg/dL Urine Nitrate Neg (NEG) Urine Bilirubin Neg (NEG) mg/dL Urine Urobilinogen Norm (NEG) mg/dL Ur Leukocyte Esterase 2+ (moderate) (NEG) /uL Urine RBC > 182 H (0-1) /hpf Urine WBC > 182 H (0-4) /hpf Ur Squamous Epith Cells 0 (0-4) /hpf Urine Bacteria 4+ A (0) /hpf Ur Culture Indicated? Yes 08/24/17 08/24/17 Range/Units 21:18 22:45 WBC (4.5-11.0) K/mcL RBC (4.50-5.90) M/mcL Hgb (13.5-16.5) g/dL Hct (41.0-55.0) % MCV (80.0-100.0) fL MCH (26.0-34.0) pg MCHC (31.0-36.0) g/dL RDW (11.5-14.5) % Plt Count (140-440) K/mcL MPV (7.4-10.4) fL Gran % (38.0-78.0) % Lymph % (Auto) (15.5-49.0) % [place] % (Auto) (1.0-12.0) % Eos % (Auto) (0.0-7.0) % Baso % (Auto) (0.0-2.0) % Gran # (1.8-8.0) K/mcL Lymph # (Auto) (1.5-4.8) K/mcL [place] # (Auto) (0.1-0.9) K/mcL Eos # (Auto) (0.0-0.7) K/mcL Baso # (Auto) (0.0-0.3) K/mcL Band Neutrophils % Not Reportable VBG Lactic Acid 3.2 H (0.5-2.2) mmol/L Sodium (133-145) mmol/L Potassium (3.3-5.1) mmol/L Chloride (96-108) mmol/L Carbon Dioxide (22-30) mmol/L Anion Gap (8-16) BUN (8-23) mg/dl Creatinine (0.7-1.2) mg/dl GFR Calculation Glucose (70-105) mg/dL Calcium (8.6-10.4) mg/dl Total Bilirubin (0.0-1.0) mg/dL AST (0-37) U/l ALT (0-40) U/l Alkaline Phosphatase (39-117) U/L Total Protein (5.9-8.4) gm/dL Albumin (3.2-5.2) gm/dL Globulin (2.2-3.7) gm/dL Albumin/Globulin Ratio (1.0-2.3) Urine Color Urine Appearance Urine pH (5.0-9.0) Ur Specific [place] (1.000-1.035) Urine Protein (NEG) mg/dL Urine Glucose (UA) (NEG) mg/dL Urine Ketones (NEG) mg/dL Urine Occult Blood (<0.03) mg/dL Urine Nitrate (NEG) Urine Bilirubin (NEG) mg/dL Urine Urobilinogen (NEG) mg/dL Ur Leukocyte Esterase (NEG) /uL Urine RBC (0-1) /hpf Urine WBC (0-4) /hpf Ur Squamous Epith Cells (0-4) /hpf Urine Bacteria (0) /hpf Ur Culture Indicated? Disposition Pt seen by FIELD SERVICE TECHNICIAN POULTRY/PA only: No Clinical Impression: Sepsis, Urinary tract infection Disposition: Xfer As Inpt ([facility]) Condition: Fair Referrals: Nico Falcno MD [Primary Care Provider] - Time of Disposition: 23:37
--- NOTE | 2017-08-24 23:43 | Internal Med History&Physical ---
Medical - H&P: HPI Patient information: Note initiated : 08/24/17 at 11:39 pm Service Date, if different from initiated Date: [] Patient: Issac Upton a 82 y/o M admitted on for Thinks has bladder infection. Chief Complaint: [] Chief complaint: Chills and increased frequency History of present illness: Mr. Upton is a 82 year old M with a history of myasthenia gravis and recent back surgery and prostate surgery end of July who comes in with 3 days' onset of increasing weakness fatigue shaking chills burning sensation along with increasing frequency of urination. Patient ever since the urological procedure has had difficulty controlling urination and was started on oxybutynin by urology. Patient's symptoms improved for a few days however with the last week patient has gotten progressively weaker along with associated above symptoms. He endorses to low- grade fever but denies drenching sweats. Denies back pain. He was actually recovering fairly well after his back surgery and was able to perform activities of daily living without much difficulty. He is independent and lives with his Kali in [facility]. He denies bloody urine/diarrhea headache photophobia or he denies arthralgia myalgia or weight loss glandular swelling. initial workup in the ER was significant for a white count over 23,000 along with 18% bands,blood pressures 90s and fever 102.9. Patient received crystalloids and antibiotics. Significant pyuria was noted on UA. Subsequently hospitalist service was consulted. Patient was seen in room. Most of the history is obtained from patient. He appears lethargic but was able to anastomosis or questions. He is able to endorse history as above. Review of systems A 10 point review of systems was performed and is negative except as discussed above Medical - H&P: PMH Medical history: lumbar Spinal stenosis with neurogenic claudication status post lumbar decompression L1-L4 06/23/17 BPH status post photo vaporization by urology mid-July 2017 hypothyroidism hypertension Hyperlipidemia Myasthenia gravis PFO DM type II Surgical History History of colonoscopy (Chronic) 07/04/2013; Diverticulosis Hx of decompressive lumbar laminectomy (Acute) 06/22/17 L1 to L4. H/O Spinal surgery (Resolved) per patient fused lower lumbar surgery 1972 S/P tonsillectomy and adenoidectomy (Resolved) History of back surgery (Inactive) 1973; HE BROKE HIS BACK History of lumbar fusion (Inactive) 1973 History of toe surgery (Inactive) 1972; Broke several toes History of tonsillectomy (Inactive) Pertinent family history: Unknown Dementia Type 2 diabetes mellitus Mother Cardiac disease Father Malignant neoplasm of pancreas, Onset Age: 73 Social history: and lives with in [facility] retired no history of smoking , Occasional alcohol use Medical - H&P: Meds Home Medications Medication Instructions Recorded Confirmed Type mycophenolate mofetil 500 mg tablet See Dose Instructions PO .COMPLEX 01/04/15 08/24/17 History tab pyridostigmine bromide 60 mg tablet 120 mg PO TID tab 01/04/15 08/24/17 History metoprolol tartrate 25 mg tablet 12.5 mg PO BID #90 tab 09/16/16 08/24/17 Rx levothyroxine 88 mcg tablet 88 mcg PO QDAY #90 tab 05/15/17 08/24/17 Rx oxybutynin chloride ER 10 mg 10 mg PO HS #90 tab 07/31/17 08/24/17 Rx tablet,extended release 24 hr Gabapentin [Neurontin] 300 mg PO TID 08/24/17 08/24/17 History Allergies Allergy/AdvReac Type Severity Reaction Status Date / Time Penicillins Allergy Intermediate Hives Verified 08/10/17 13:28 levofloxacin [From Levaquin] AdvReac Severe Contraindicated Verified 08/10/17 13 :28 r/t Myasthenia Gravis lisinopril AdvReac Mild Cough Verified 08/10/17 13:28 Medical - H&P: Exam - Constitutional Vitals: Temp Pulse Resp BP Pulse Ox 98.4 F 81 18 115/56 94 08/24/17 20:35 08/24/17 23:11 08/24/17 20:35 08/24/17 23:09 08/24/17 23:11 General appearance: no acute distress Exam: discharge Pupils symmetric oral cavity dry Neck no lymphadenopathy No ear discharge Head normocephalic/atraumatic S1 and S2 tachycardia Diminished breath sounds bases Abdomen soft nontender Lower extremity no cyanosis clubbing Skin no suspicious lesion No joint swelling and erythema Psych alert cooperative Neuro nonfocal Medical - H&P: Reslt - Labs CBC & Chem 7: 08/25/17 02:51 08/25/17 02:51 Labs: Short CBC 08/24/17 Range/Units 21:18 WBC 23.0 H (4.5-11.0) K/mcL Hgb 13.9 (13.5-16.5) g/dL Hct 42.9 (41.0-55.0) % Plt Count 182 (140-440) K/mcL BMP 08/24/17 21:18 Sodium 136 Potassium 4.1 Chloride 96 Carbon Dioxide 22 BUN 18 Creatinine 1.6 H Glucose 109 H Calcium 9.0 Liver Function 08/24/17 Range/Units 21:18 Total Bilirubin 0.9 (0.0-1.0) mg/dL AST 23 (0-37) U/l ALT 15 (0-40) U/l Alkaline Phosphatase 83 (39-117) U/L Albumin 4.3 (3.2-5.2) gm/dL Urine 08/24/17 Range/Units 21:15 Urine Color Yellow Urine Appearance Turbid Urine pH 5.0 (5.0-9.0) Ur Specific [place] 1.015 (1.000-1.035) Urine Protein 100 (2+) (NEG) mg/dL Urine Glucose (UA) Norm (NEG) mg/dL Medical - H&P: A/P (1) Septic shock Current visit: Yes Status: Acute * septic shock with elevated lactate and white count 20,000/bandemia and systolics below 90. Status post 3L crystalloids. Start Levophed to keep map at goal. Venous lactate trending and continue antibiotic coverage * Complicated UTI. gram Negative/enterococci coverage with vancomycin/Rocephin/ gentamicin for synergistic effect(allergy to penicillin/levofloxacin) * history of myasthenia gravis on mycophenolate/rivastigmine * hypothyroidism on thyroxine * History of hypertension-medication on hold in light of shock * Neuropathy and gabapentin * Full CODE STATUS * Prophylaxis on heparin Plan * Admitted to ICU in light of Petroleum score 18.patient critically ill * Renal ultrasound * Venous lactate trending * Broad antibiotic coverage 35 minutes critical care time spent on septic shock management in addition to time spent on H&P
[2017-08-24 23:55] LABS: Band Neutrophils % 18 % (0-10); Lymphocytes % 7 % (15-49); Monocytes % (Manual) 7 % (1-12); Platelet Estimate NORMAL (NORMAL); RBC Morphology NORMAL (NORMAL); Segmented Neutrophils % 68 % (38-78)
[2017-08-25] MEDS ORDERED: 0.9 % SODIUM CHLORIDE 1,000 ML IV ONE (00:26)
[2017-08-25] MEDS ORDERED: VANCOMYCIN PER PHARMACY IV ONE (01:15)
[2017-08-25] MEDS ORDERED: ONDANSETRON 4 MG/2 ML VIAL IV PRN (01:15)
[2017-08-25] MEDS ORDERED: MAGNESIUM HYDROXIDE 30 ML ORAL.SUSP PO PRN (01:15)
[2017-08-25] MEDS ORDERED: ACETAMINOPHEN 325 MG TABLET PO PRN (01:15)
[2017-08-25] MEDS ORDERED: cefTRIAXone 2 GM in DEXTROSE 5% IN WATER 50 ML IV SCH (01:15)
[2017-08-25] MEDS ORDERED: GENTAMICIN SULFATE 250 MG in 0.9 % SODIUM CHLORIDE 250 ML IV SCH (01:15)
[2017-08-25] MEDS ORDERED: ACETAMINOPHEN 325 MG TABLET PO ONE (01:21)
[2017-08-25] MEDS ORDERED: GENTAMICIN SULFATE 80 MG/2 ML VIAL ONE ×2 (01:44→01:52)
[2017-08-25] MEDS ORDERED: cefTRIAXone 1 GM VIAL ONE (01:45)
[2017-08-25] MEDS ORDERED: VANCOMYCIN 1,500 MG in 0.9 % SODIUM CHLORIDE 500 ML IV ONE (02:05)
[2017-08-25] MEDS: 0.9 % SODIUM CHLORIDE 1,000 ML IV SCH ×4 (02:08→20:47)
[2017-08-25] MEDS: NOREPINEPHRINE BITARTRATE 16 MG in 0.9 % SODIUM CHLORIDE 234 ML IV SCH ×3 (02:08→15:44)
[2017-08-25] MEDS ORDERED: NOREPINEPHRINE BITARTRATE 4 MG/4 ML AMPUL IV ONE (03:07)
[2017-08-25 04:05] LABS: Mean Cell Volume 91.1 fL (80.0-100.0); Mean Corpuscular HGB Conc 32.6 g/dL (31.0-36.0); Mean Corpuscular Hemoglobin 29.7 pg (26.0-34.0); Platelet Count 139 K/mcL (140-440); RBC 3.89 M/mcL (4.50-5.90); Red Cell Distribution Width 14.6 % (11.5-14.5)
[2017-08-25 04:56] LABS: ALT/SGPT 10 U/l (0-40); Albumin 3.2 gm/dL (3.2-5.2); Albumin/Globulin Ratio 1.2 (1.0-2.3); Alkaline Phosphatase 62 U/L (39-117); Bilirubin,Direct < 0.2 mg/dL (0.0-0.3); Blood Urea Nitrogen 18 mg/dl (8-23); Gamma Glutamyl Transpeptidase 11 U/L (8-61); Uric Acid 5.9 mg/dL (2.5-8.0)
[2017-08-25] MEDS: 0.9 % SODIUM CHLORIDE 10 ML SYRINGE IV SCH ×3 (05:21→22:09)
[2017-08-25 06:41] LABS: Band Neutrophils % 16 % (0-10); Lymphocytes % 5 % (15-49); Monocytes % (Manual) 6 % (1-12); Platelet Estimate DECREASED (NORMAL); RBC Morphology NORMAL (NORMAL); Segmented Neutrophils % 75 % (38-78)
[2017-08-25] MEDS: LEVOTHYROXINE 88 MCG TABLET PO SCH (07:14)
[2017-08-25] MEDS ORDERED: VANCOMYCIN PER PHARMACY IV SCH (07:15)
--- NOTE | 2017-08-25 09:03 | Ultrasound Report ---
History: Obstructive uropathy Right kidney measures 6.0 x 6.8 x 12.4 cm and the left measures 5.0 x 6.9 x 13.4 cm. There is a very large exophytic simple cyst arising from the lower pole of the right kidney. It measures 10.2 x 11.9 x 12.3 cm. No cyst is present in the left kidney. There is no mass, calculus or hydronephrosis in either kidney. Doppler shows flow of urine through both ureters into the bladder. Before voiding the patient had 112 cc of urine within the bladder. The bladder wall is smooth and normal in thickness. The patient stated he had emptied his bladder one half hour prior to the exam and did not feel he could urinate again.. Comparison with the prior abdomen CT done on 05/29/11 shows little change in appearance of the large right renal cyst. Impression: Stable large exophytic cyst arising from the lower pole of the right kidney. The exam is otherwise normal. Interpreted and Authenticated by: Miguel Alonzo 08/25/17
[2017-08-25] MEDS: ERTAPENEM 1 GM in 0.9 % SODIUM CHLORIDE 50 ML IV SCH (09:55)
[2017-08-25] MEDS: GABAPENTIN 300 MG CAPSULE PO SCH ×3 (09:55→20:43)
[2017-08-25] MEDS: DOCUSATE SODIUM 100 MG CAPSULE PO SCH ×2 (09:55→20:44)
[2017-08-25] MEDS: HEPARIN 5,000 UNIT/ML VIAL SQ SCH ×2 (09:55→20:43)
[2017-08-25] MEDS: PYRIDOSTIGMINE 60 MG TABLET PO SCH ×3 (09:56→20:47)
[2017-08-25] MEDS ORDERED: VANCOMYCIN 500 MG in 0.9 % SODIUM CHLORIDE 100 ML IV ONE (10:00)
--- NOTE | 2017-08-25 12:51 | Internal Med Progress Note ---
Medical - PN: Subj Patient information: Note initiated : 08/25/17 at 12:48 pm Service Date, if different from initiated Date: [] Patient: Issac Upton a 82 y/o M admitted on 08/25/17 for Thinks has bladder infection. Chief Complaint: [] Interval history: Mr. Upton is a 82 year old M with a history of myasthenia gravis and recent back surgery and prostate surgery end of July who comes in with 3 days' onset of increasing weakness fatigue shaking chills burning sensation along with increasing frequency of urination. Patient ever since the urological procedure has had difficulty controlling urination and was started on oxybutynin by urology. Patient's symptoms improved for a few days however with the last week patient has gotten progressively weaker along with associated above symptoms. He endorses to low- grade fever but denies drenching sweats. Denies back pain. He was actually recovering fairly well after his back surgery and was able to perform activities of daily living without much difficulty. He is independent and lives with his Kali in [facility]. He denies bloody urine/diarrhea headache photophobia or he denies arthralgia myalgia or weight loss glandular swelling. initial workup in the ER was significant for a white count over 23,000 along with 18% bands,blood pressures 90s and fever 102.9. Patient received crystalloids and antibiotics. Significant pyuria was noted on UA. Subsequently hospitalist service was consulted. Patient was seen in room. Most of the history is obtained from patient. He appears lethargic but was able to anastomosis or questions. He is able to endorse history as above. 08/25-patient clinically improved. Weaning pressors. Map at goal. Venous lactate normalized. White count 20,000 with persistent bandemia. improve renal function/end organ dysfunction. antibiotics escalated to carbapenem in light of septic shock and penicillin/levofloxacin allergy. continue critical care management. T-Max 102.9. urine culture gram-negative bacteria. Blood cultures pending. renal ultrasound no evidence of obstructive uropathy - Constitutional Vitals: Vital Signs Temp Pulse Resp BP Pulse Ox 100.3 F H 99 H 29 H 140/104 94 08/25/17 08:00 08/25/17 10:02 08/25/17 10:27 08/25/17 10:02 08/25/17 10:02 Period Temp Pulse Resp BP Sys/Anthony Pulse Ox Last 24 Hr 98.4 F-102.9 F 59-109 18-36 80-140/45-104 92-100 Intake and Output 08/24/17 08/25/17 08/25/17 21:59 05:59 13:59 Intake Total 4054.25 / 4054.25 272 / 272 Output Total 150 / 150 300 / 300 Balance 3904.25 / 3904.25 -28 / -28 Weight 230 lb 226 lb 6.4 oz Intake & Output: Intake & Output 08/24/17 08/25/17 08/25/17 21:59 05:59 13:59 Intake Total 4054.25 / 4054.25 272 / 272 Output Total 150 / 150 300 / 300 Balance 3904.25 / 3904.25 -28 / -28 Weight 230 lb 226 lb 6.4 oz Intake: IV 3694.25 / 3694.25 32 / 32 Sodium Chloride 0.9% 1,000 ml @ 2917 / 2917 Wide Open IV BOLUS TRUE Rx#: [id number] Gentamicin Sulfate 250 mg In 256.25 / 256.25 Sodium Chloride 0.9% 250 ml @ 250 mls/hr IV ONCE TRUE Rx#: [id number] Levophed 16 mg In Sodium 21 / 21 32 / 32 Chloride 0.9% 234 ml @ 10 MCG/ MIN 9.37 mls/hr IV Q24H TRUE Rx# :[id number] Vancomycin 1,500 mg In Sodium 500 / 500 Chloride 0.9% 500 ml @ 333.3 mls/hr IV ONCE ONE Rx#: [id number] Oral 360 / 360 240 / 240 Output: Urine Catheter Amount 200 / 200 Void Amount 150 / 150 100 / 100 Other: Meal Breakfast Percent of Meal Consumed 100% Feeding Ability Assist with Tray Set Up # Voids 1 # Bowel Movements 1 General appearance: cooperative, no acute distress Exam: alert oriented nonlabored breathing Nondistended abdomen No anxiety Minimally short of breath Tachycardia on telemetry Medical - PN: Obj Da - Labs CBC & Chem 7: 08/25/17 02:51 08/25/17 02:51 Labs: Abnormal Lab Results 08/25/17 08/25/17 08/25/17 10:42 02:51 02:51 WBC 20.3 H RBC 3.89 L Hgb 11.6 L Hct 35.5 L RDW 14.6 H Plt Count 139 L Gran % Lymph % (Auto) Gran # Lymph # (Auto) [place] # (Auto) Band Neutrophils % 16 H Lymphocytes % 5 L Platelet Estimate Decreased A VBG Lactic Acid 2.5 H Anion Gap Creatinine 1.4 H Glucose 106 H Calcium 7.7 L Urine RBC Urine WBC Urine Bacteria 08/24/17 08/24/17 08/24/17 22:45 21:18 21:18 WBC RBC Hgb Hct RDW Plt Count Gran % Lymph % (Auto) Gran # Lymph # (Auto) [place] # (Auto) Band Neutrophils % 18 H Lymphocytes % 7 L Platelet Estimate VBG Lactic Acid 3.2 H Anion Gap 18.0 H Creatinine 1.6 H Glucose 109 H Calcium Urine RBC Urine WBC Urine Bacteria 08/24/17 08/24/17 21:18 21:15 WBC 23.0 H RBC Hgb Hct RDW Plt Count Gran % 86.6 H Lymph % (Auto) 5.7 L Gran # 19.9 H Lymph # (Auto) 1.3 L [place] # (Auto) 1.7 H Band Neutrophils % Lymphocytes % Platelet Estimate VBG Lactic Acid Anion Gap Creatinine Glucose Calcium Urine RBC > 182 H Urine WBC > 182 H Urine Bacteria 4+ A Meds: Medications Acetaminophen (Tylenol) 650 mg PO Q4-6HP PRN PRN Reason: PAIN/FEVER > 101 Last Admin: 08/25/17 01:20 Dose: 650 mg Ceftriaxone Sodium (Rocephin) 2 gm IV Q24H [facility] Docusate Sodium (Colace) 100 mg PO BID [facility] Last Admin: 08/25/17 09:55 Dose: Not Given Gabapentin (Neurontin) 300 mg PO TID [facility] Last Admin: 08/25/17 09:55 Dose: 300 mg Heparin Sodium (Porcine) (Heparin) 5,000 unit SQ Q12 [facility] Last Admin: 08/25/17 09:55 Dose: 5,000 unit Norepinephrine Bitartrate 16 (mg/ Sodium Chloride) 250 mls @ 9.37 mls/hr IV Q24H TRUE; 10 MCG/MIN PRN Reason: Protocol Last Titration: 08/25/17 10:35 Dose: 2 mcg/min, 1.87 mls/hr Sodium Chloride (Sodium Chloride 0.9%) 1,000 mls @ 50 mls/hr IV .Q20H [facility] Stop: 08/27/17 13:14 Last Admin: 08/25/17 02:30 Dose: 50 mls/hr Sodium Chloride (Sodium Chloride 0.9%) 1,000 mls @ 0 mls/hr IV BOLUS [facility] PRN Reason: Wide Open Last Infusion: 08/25/17 03:44 Dose: Infused Vancomycin HCl 1,500 mg/ (Sodium Chloride) 500 mls @ 333.3 mls/hr IV Q24H [facility] Ertapenem 1 gm/ Sodium (Chloride) 50 mls @ 100 mls/hr IV Q24H [facility] Last Admin: 08/25/17 09:55 Dose: 100 mls/hr Levothyroxine Sodium (Synthroid) 88 mcg PO QAMAC [facility] Last Admin: 08/25/17 07:14 Dose: 88 mcg Magnesium Hydroxide (Milk Of Magnesia) 30 ml PO HSP PRN PRN Reason: Constipation Mycophenolate Mofetil (Cellcept) 500 mg PO QNOON [facility] Mycophenolate Mofetil (Cellcept) 1,000 mg PO HS [facility] Ondansetron HCl (Zofran) 4 mg IV Q4-6HP PRN PRN Reason: Nausea And Vomiting Pyridostigmine [place] (Mestinon) 120 mg PO TID [facility] Last Admin: 08/25/17 09:56 Dose: 120 mg Senna/Docusate Sodium (Senna Plus Tablet) 1 tab PO HS [facility] Sodium Chloride (Saline Flush) 10 ml IV Q8 [facility] Last Admin: 08/25/17 05:21 Dose: Not Given Vancomycin HCl (Vancomycin Per Pharmacy) 1 order IV [facility] Medical - PN: A/P - Time Spent With Patient Total time spent is greater than 50% in coordination of care (as documented) at patient's floor/unit and/or counseling patient: Greater than 35 minutes (critical care time) (1) Septic shock Status: Acute Assessment and plan: Assessment- 82-year-old with a history of myasthenia gravis admitted with septic shock * septic shock with elevated lactate and white count 20,000/bandemia and systolics below 90. Status post 3L crystalloids. Start Levophed to keep map at goal. Venous lactate trending and continue antibiotic coverage * Complicated UTI. gram Negative/enterococci coverage with vancomycin/ertapenem (allergy to penicillin/levofloxacin) * history of myasthenia gravis continue on mycophenolate/rivastigmine * hypothyroidism on thyroxine * History of hypertension-medication on hold in light of shock * Neuropathy and gabapentin * Full CODE STATUS * Prophylaxis on heparin Plan * continue ICU care * Vasopressors * Venous lactate trending * Escalate antibiotics Current Visit: Yes Medical - PN: Qual - VTE Deep Vein Thrombosis/Pulmonary Embolism Present on Admission: No
[2017-08-25] MEDS: MYCOPHENOLATE 250 MG CAPSULE PO SCH (12:52)
[2017-08-25] MEDS: cefTRIAXone 2 GM VIAL IV SCH (16:22)
[2017-08-25] MEDS ORDERED: HYDROcodone/APAP 5/325MG TABLET PO PRN (16:55)
[2017-08-25] MEDS ORDERED: ACETAMINOPHEN 1,000 MG/100 ML BOTTLE IV PRN (16:56)
[2017-08-25] MEDS ORDERED: MYCOPHENOLATE 250 MG CAPSULE PO SCH (21:00)
[2017-08-25] MEDS ORDERED: SENNOSIDES/DOCUSATE SODIUM 1 TAB TABLET PO SCH (21:00)
[2017-08-26] MEDS: 0.9 % SODIUM CHLORIDE 1,000 ML IV SCH ×2 (00:13→01:15)
[2017-08-26] MEDS: 0.9 % SODIUM CHLORIDE 10 ML SYRINGE IV SCH ×3 (05:21→22:00)
[2017-08-26 05:42] LABS: Mean Corpuscular HGB Conc 32.6 g/dL (31.0-36.0); Platelet Count 119 K/mcL (140-440); RBC 3.78 M/mcL (4.50-5.90); Red Cell Distribution Width 14.8 % (11.5-14.5)
[2017-08-26 06:28] LABS: ALT/SGPT 9 U/l (0-40); Albumin 3.1 gm/dL (3.2-5.2); Alkaline Phosphatase 114 U/L (39-117); Bilirubin,Direct < 0.2 mg/dL (0.0-0.3); Blood Urea Nitrogen 16 mg/dl (8-23); Gamma Glutamyl Transpeptidase 11 U/L (8-61); Uric Acid 5.5 mg/dL (2.5-8.0)
[2017-08-26 06:29] LABS: Band Neutrophils % 2 % (0-10); Lymphocytes % 4 % (15-49); Monocytes % (Manual) 4 % (1-12); Platelet Estimate DECREASED (NORMAL); RBC Morphology NORMAL (NORMAL); Segmented Neutrophils % 90 % (38-78)
[2017-08-26] MEDS: LEVOTHYROXINE 88 MCG TABLET PO SCH (07:20)
[2017-08-26] MEDS: DOCUSATE SODIUM 100 MG CAPSULE PO SCH ×2 (08:36→20:32)
[2017-08-26] MEDS: HEPARIN 5,000 UNIT/ML VIAL SQ SCH ×2 (08:37→20:31)
[2017-08-26] MEDS: GABAPENTIN 300 MG CAPSULE PO SCH ×3 (08:38→20:30)
[2017-08-26] MEDS: cefTRIAXone 2 GM VIAL IV SCH (08:38)
[2017-08-26] MEDS: PYRIDOSTIGMINE 60 MG TABLET PO SCH ×3 (08:38→20:29)
[2017-08-26] MEDS ORDERED: FUROSEMIDE 20 MG/2 ML VIAL IV SCH (09:00)
[2017-08-26] MEDS ORDERED: VANCOMYCIN 1,500 MG in 0.9 % SODIUM CHLORIDE 500 ML IV SCH ×2 (10:00→21:00)
[2017-08-26] MEDS: ERTAPENEM 1 GM in 0.9 % SODIUM CHLORIDE 50 ML IV SCH (11:10)
[2017-08-26] MEDS: MYCOPHENOLATE 250 MG CAPSULE PO SCH (11:41)
--- NOTE | 2017-08-26 11:51 | Internal Med Progress Note ---
Medical - PN: Subj Patient information: Note initiated : 08/26/17 at 11:49 am Service Date, if different from initiated Date: [] Patient: Issac Upton a 82 y/o M admitted on 08/25/17 for Thinks has Bladder Infection/Sepsis, UTI. Chief Complaint: [] Interval history: Mr. Upton is a 82 year old M with a history of myasthenia gravis and recent back surgery and prostate surgery end of July who comes in with 3 days' onset of increasing weakness fatigue shaking chills burning sensation along with increasing frequency of urination. Patient ever since the urological procedure has had difficulty controlling urination and was started on oxybutynin by urology. Patient's symptoms improved for a few days however with the last week patient has gotten progressively weaker along with associated above symptoms. He endorses to low- grade fever but denies drenching sweats. Denies back pain. He was actually recovering fairly well after his back surgery and was able to perform activities of daily living without much difficulty. He is independent and lives with his Kali in [facility]. He denies bloody urine/diarrhea headache photophobia or he denies arthralgia myalgia or weight loss glandular swelling. initial workup in the ER was significant for a white count over 23,000 along with 18% bands,blood pressures 90s and fever 102.9. Patient received crystalloids and antibiotics. Significant pyuria was noted on UA. Subsequently hospitalist service was consulted. Patient was seen in room. Most of the history is obtained from patient. He appears lethargic but was able to anastomosis or questions. He is able to endorse history as above. 08/25-patient clinically improved. Weaning pressors. Map at goal. Venous lactate normalized. White count 20,000 with persistent bandemia. improve renal function/end organ dysfunction. antibiotics escalated to carbapenem in light of septic shock and penicillin/levofloxacin allergy. continue critical care management. T-Max 102.9. urine culture gram-negative bacteria. Blood cultures pending. renal ultrasound no evidence of obstructive uropathy August 26-patient doing a lot better. Enterobacter erogenous on culture multidrug-resistant. On ertapenem. DC vancomycin/Rocephin. Continue antibiotic for additional 7 to 10 days. Off pressors. Stable hemodynamics. Transfer to telemetry. Case discussed with family. Patient continues to have urge incontinence and will need outpatient follow-up with urology. Avoid oxybutynin at this time due to risk of urinary retention and persistent infection. No overnight fever chills. MAXIMUM TEMPERATURE 100.8 last evening. white count down to 17,000. bandemia resolved. creatinine down to 1.2. - Constitutional Vitals: Vital Signs Temp Pulse Resp BP Pulse Ox 98.9 F 112 H 28 H 142/76 91 08/26/17 04:01 08/26/17 09:01 08/26/17 09:01 08/26/17 09:01 08/26/17 09:01 Period Temp Pulse Resp BP Sys/Anthony Pulse Ox Last 24 Hr 98.7 F-100.8 F 67-112 16-37 78-182/41-171 91-98 Intake and Output 08/25/17 08/26/17 08/26/17 21:59 05:59 13:59 Intake Total 257 / 257 1493 / 1493 738 / 738 Output Total 350 / 350 727 / 727 250 / 250 Balance -93 / -93 766 / 766 488 / 488 Weight 244 lb Intake & Output: Intake & Output 08/25/17 08/26/17 08/26/17 21:59 05:59 13:59 Intake Total 257 / 257 1493 / 1493 738 / 738 Output Total 350 / 350 727 / 727 250 / 250 Balance -93 / -93 766 / 766 488 / 488 Weight 244 lb Intake: IV / 17 1133 / 1133 538 / 538 Sodium Chloride 0.9% 1,000 ml @ 1000 / 1000 50 mls/hr IV .Q20H TRUE Rx#: [id number] INVanz 1 GM In Sodium Chloride 33 / 33 50 / 50 0.9% 50 ml @ 100 mls/hr IV Q24H TRUE Rx#:[id number] Levophed 16 mg In Sodium 17 / 17 Chloride 0.9% 234 ml @ 10 MCG/ MIN 9.37 mls/hr IV Q24H TRUE Rx# :[id number] Vancomycin 500 mg In Sodium 100 / 100 Chloride 0.9% 100 ml @ 100 mls/ hr IV ONCE ONE Rx#:[id number] Oral 240 / 240 360 / 360 200 / 200 Output: Void Amount 350 / 350 575 / 575 250 / 250 # of times incontinent of urine 2 / 2 Stool 150 / 150 Other: Meal Dinner Percent of Meal Consumed 100% Feeding Ability Assist with Tray Set Up Stool Size Moderate Moderate Stool Color Yellow Brown Stool Consistency Liquid Liquid Soft # Voids 1 # Bowel Movements 1 1 General appearance: morbidly obese, no acute distress Exam: minimal anxiety alert oriented Nonlabored breathing Nondistended abdomen no telemetry events except for tachycardia Medical - PN: Obj Da - Labs CBC & Chem 7: 08/26/17 04:13 08/26/17 04:13 Labs: Abnormal Lab Results 08/26/17 08/26/17 08/25/17 04:13 04:13 10:42 WBC 17.1 H RBC 3.78 L Hgb 11.4 L Hct 34.8 L RDW 14.8 H Plt Count 119 L Gran % Lymph % (Auto) Gran # Lymph # (Auto) [place] # (Auto) Seg Neutrophils % 90 H Band Neutrophils % Lymphocytes % 4 L Platelet Estimate Decreased A VBG Lactic Acid 2.5 H Anion Gap Creatinine Glucose Calcium 8.0 L Phosphorus 2.3 L Albumin 3.1 L Urine RBC Urine WBC Urine Bacteria 08/25/17 08/25/17 08/24/17 02:51 02:51 22:45 WBC 20.3 H RBC 3.89 L Hgb 11.6 L Hct 35.5 L RDW 14.6 H Plt Count 139 L Gran % Lymph % (Auto) Gran # Lymph # (Auto) [place] # (Auto) Seg Neutrophils % Band Neutrophils % 16 H 18 H Lymphocytes % 5 L 7 L Platelet Estimate Decreased A VBG Lactic Acid Anion Gap Creatinine 1.4 H Glucose 106 H Calcium 7.7 L Phosphorus Albumin Urine RBC Urine WBC Urine Bacteria 08/24/17 08/24/17 08/24/17 21:18 21:18 21:18 WBC 23.0 H RBC Hgb Hct RDW Plt Count Gran % 86.6 H Lymph % (Auto) 5.7 L Gran # 19.9 H Lymph # (Auto) 1.3 L [place] # (Auto) 1.7 H Seg Neutrophils % Band Neutrophils % Lymphocytes % Platelet Estimate VBG Lactic Acid 3.2 H Anion Gap 18.0 H Creatinine 1.6 H Glucose 109 H Calcium Phosphorus Albumin Urine RBC Urine WBC Urine Bacteria 08/24/17 21:15 WBC RBC Hgb Hct RDW Plt Count Gran % Lymph % (Auto) Gran # Lymph # (Auto) [place] # (Auto) Seg Neutrophils % Band Neutrophils % Lymphocytes % Platelet Estimate VBG Lactic Acid Anion Gap Creatinine Glucose Calcium Phosphorus Albumin Urine RBC > 182 H Urine WBC > 182 H Urine Bacteria 4+ A Meds: Medications Acetaminophen (Tylenol) 650 mg PO Q4-6HP PRN PRN Reason: PAIN/FEVER > 101 Last Admin: 08/25/17 01:20 Dose: 650 mg Hydrocodone Bitart/Acetaminophen ([place] 5/325mg) 1 - 2 tab PO Q4-6HP PRN PRN Reason: PAIN LEVEL 3-6 Last Admin: 08/25/17 20:43 Dose: 2 tab Ceftriaxone Sodium (Rocephin) 2 gm IV Q24H [facility] Last Admin: 08/26/17 08:38 Dose: 2 gm Docusate Sodium (Colace) 100 mg PO BID [facility] Last Admin: 08/26/17 08:36 Dose: Not Given Furosemide (Lasix) 20 mg IV DAILY [facility] Last Admin: 08/26/17 08:37 Dose: 20 mg Gabapentin (Neurontin) 300 mg PO TID [facility] Last Admin: 08/26/17 08:38 Dose: 300 mg Heparin Sodium (Porcine) (Heparin) 5,000 unit SQ Q12 [facility] Last Admin: 08/26/17 08:37 Dose: 5,000 unit Norepinephrine Bitartrate 16 (mg/ Sodium Chloride) 250 mls @ 9.37 mls/hr IV Q24H [facility]; 10 MCG/MIN PRN Reason: Protocol Last Titration: 08/25/17 17:00 Dose: 0 mcg/min, 0 mls/hr Ertapenem 1 gm/ Sodium (Chloride) 50 mls @ 100 mls/hr IV Q24H [facility] Last Infusion: 08/26/17 11:43 Dose: Infused Acetaminophen (Ofirmev) 1,000 mg in 100 mls @ 200 mls/hr IV Q6HP PRN PRN Reason: PAIN/FEVER > 101 Vancomycin HCl 1,500 mg/ (Sodium Chloride) 500 mls @ 333.3 mls/hr IV Q12H [facility] Last Admin: 08/26/17 11:10 Dose: 333.3 mls/hr Levothyroxine Sodium (Synthroid) 88 mcg PO QAMAC [facility] Last Admin: 08/26/17 07:20 Dose: 88 mcg Magnesium Hydroxide (Milk Of Magnesia) 30 ml PO HSP PRN PRN Reason: Constipation Mycophenolate Mofetil (Cellcept) 500 mg PO QNOON [facility] Last Admin: 08/26/17 11:41 Dose: 500 mg Mycophenolate Mofetil (Cellcept) 1,000 mg PO HS [facility] Last Admin: 08/25/17 20:42 Dose: 1,000 mg Ondansetron HCl (Zofran) 4 mg IV Q4-6HP PRN PRN Reason: Nausea And Vomiting Pyridostigmine [place] (Mestinon) 120 mg PO TID [facility] Last Admin: 08/26/17 08:38 Dose: 120 mg Senna/Docusate Sodium (Senna Plus Tablet) 1 tab PO [facility] Last Admin: 08/25/17 20:44 Dose: 1 tab Sodium Chloride (Saline Flush) 10 ml IV Q8 [facility] Last Admin: 08/26/17 05:21 Dose: 10 ml Vancomycin HCl (Vancomycin Per Pharmacy) 1 order IV UD [facility] Medical - PN: A/P - Time Spent With Patient Total time spent is greater than 50% in coordination of care (as documented) at patient's floor/unit and/or counseling patient: 25 - 35 minutes (1) Septic shock Status: Acute Assessment and plan: Assessment- 82-year-old with a history of myasthenia gravis admitted with septic shock * Septic shock with elevated lactate and white count 23,000/bandemia - clinically resolved. Off pressors. * multidrug-resistant Enterobacter aerogenous UTI. Continue ertapenem (allergy to penicillin/levofloxacin) * acute renal failure secondary to sepsis end organ dysfunction-creatinine improved from 1.6-1.2 * history of myasthenia gravis continue on mycophenolate/rivastigmine * hypothyroidism on thyroxine * History of hypertension- home medications can be restarted once systolics over 140 * Neuropathy on gabapentin * Full CODE STATUS * Prophylaxis on heparin Plan * DC Rocephin/vancomycin and continue ertapenem for 7-10 days * transfer to telemetry * monitor renal function * pre-existing medical condition management as above Current Visit: Yes Medical - PN: Qual - VTE Deep Vein Thrombosis/Pulmonary Embolism Present on Admission: No
[2017-08-26] MEDS ORDERED: ACETAMINOPHEN 1,000 MG/100 ML BOTTLE IV PRN (12:20)
[2017-08-26] MEDS ORDERED: MAGNESIUM HYDROXIDE 30 ML ORAL.SUSP PO PRN (12:20)
[2017-08-26] MEDS ORDERED: HYDROcodone/APAP 5/325MG TABLET PO PRN (12:20)
[2017-08-26] MEDS ORDERED: ONDANSETRON 4 MG/2 ML VIAL IV PRN (12:20)
[2017-08-26] MEDS ORDERED: VANCOMYCIN PER PHARMACY IV SCH (12:20)
[2017-08-26] MEDS: ACETAMINOPHEN 325 MG TABLET PO PRN (16:58)
[2017-08-26] MEDS ORDERED: MYCOPHENOLATE 250 MG CAPSULE PO SCH (21:00)
[2017-08-26] MEDS ORDERED: SENNOSIDES/DOCUSATE SODIUM 1 TAB TABLET PO SCH (21:00)
[2017-08-27 04:56] LABS: Mean Cell Volume 91.9 fL (80.0-100.0); Mean Corpuscular HGB Conc 33.2 g/dL (31.0-36.0); Mean Corpuscular Hemoglobin 30.5 pg (26.0-34.0); Platelet Count 132 K/mcL (140-440); RBC 3.79 M/mcL (4.50-5.90); Red Cell Distribution Width 14.6 % (11.5-14.5)
[2017-08-27 05:22] LABS: ALT/SGPT 11 U/l (0-40); Albumin 3.2 gm/dL (3.2-5.2); Alkaline Phosphatase 66 U/L (39-117); Bilirubin,Direct < 0.2 mg/dL (0.0-0.3); Blood Urea Nitrogen 14 mg/dl (8-23); Gamma Glutamyl Transpeptidase 12 U/L (8-61); Uric Acid 5.2 mg/dL (2.5-8.0)
[2017-08-27 05:30] LABS: Anisocytosis 1+ (NONE SEEN); Band Neutrophils % 10 % (0-10); Eosinophils % (Manual) 1 % (0-7); Lymphocytes % 5 % (15-49); Monocytes % (Manual) 1 % (1-12); Platelet Estimate DECREASED (NORMAL); RBC Morphology ABNORM (NORMAL); Segmented Neutrophils % 83 % (38-78)
[2017-08-27] MEDS: 0.9 % SODIUM CHLORIDE 10 ML SYRINGE IV SCH ×4 (06:19→23:10)
[2017-08-27] MEDS ORDERED: LEVOTHYROXINE 88 MCG TABLET PO SCH (07:30)
[2017-08-27] MEDS: DOCUSATE SODIUM 100 MG CAPSULE PO SCH ×2 (08:30→20:29)
[2017-08-27] MEDS: PYRIDOSTIGMINE 60 MG TABLET PO SCH ×3 (08:45→23:09)
[2017-08-27] MEDS: HEPARIN 5,000 UNIT/ML VIAL SQ SCH ×2 (08:45→20:29)
[2017-08-27] MEDS: GABAPENTIN 300 MG CAPSULE PO SCH ×3 (08:45→20:27)
[2017-08-27] MEDS ORDERED: FUROSEMIDE 20 MG/2 ML VIAL IV SCH (09:00)
[2017-08-27] MEDS: ACETAMINOPHEN 325 MG TABLET PO PRN (09:05)
[2017-08-27] MEDS ORDERED: ACETAMINOPHEN 325 MG TABLET PO PRN (09:54)
[2017-08-27] MEDS ORDERED: ONDANSETRON 4 MG/2 ML VIAL IV PRN (09:54)
[2017-08-27] MEDS ORDERED: ACETAMINOPHEN 1,000 MG/100 ML BOTTLE IV PRN (09:54)
[2017-08-27] MEDS ORDERED: MAGNESIUM HYDROXIDE 30 ML ORAL.SUSP PO PRN (09:54)
[2017-08-27] MEDS ORDERED: HYDROcodone/APAP 5/325MG TABLET PO PRN (09:54)
[2017-08-27] MEDS ORDERED: ERTAPENEM 1 GM in 0.9 % SODIUM CHLORIDE 50 ML IV SCH (10:00)
[2017-08-27] MEDS ORDERED: MYCOPHENOLATE 250 MG CAPSULE PO SCH ×2 (12:00→21:00)
[2017-08-27] MEDS: ERTAPENEM 1 GM in 0.9 % SODIUM CHLORIDE 50 ML IV SCH (12:15)
[2017-08-27] MEDS: MYCOPHENOLATE 250 MG CAPSULE PO SCH (12:15)
--- NOTE | 2017-08-27 13:22 | Internal Med Progress Note ---
Medical - PN: Subj Patient information: Note initiated : 08/27/17 at 1:20 pm Service Date, if different from initiated Date: [] Patient: Issac Upton a 82 y/o M admitted on 08/25/17 for Thinks has Bladder Infection/Sepsis, UTI. Chief Complaint: [] Interval history: Mr. Upton is a 82 year old M with a history of myasthenia gravis and recent back surgery and prostate surgery end of July who comes in with 3 days' onset of increasing weakness fatigue shaking chills burning sensation along with increasing frequency of urination. Patient ever since the urological procedure has had difficulty controlling urination and was started on oxybutynin by urology. Patient's symptoms improved for a few days however with the last week patient has gotten progressively weaker along with associated above symptoms. He endorses to low- grade fever but denies drenching sweats. Denies back pain. He was actually recovering fairly well after his back surgery and was able to perform activities of daily living without much difficulty. He is independent and lives with his Kali in [facility]. He denies bloody urine/diarrhea headache photophobia or he denies arthralgia myalgia or weight loss glandular swelling. initial workup in the ER was significant for a white count over 23,000 along with 18% bands,blood pressures 90s and fever 102.9. Patient received crystalloids and antibiotics. Significant pyuria was noted on UA. Subsequently hospitalist service was consulted. Patient was seen in room. Most of the history is obtained from patient. He appears lethargic but was able to anastomosis or questions. He is able to endorse history as above. 08/25-patient clinically improved. Weaning pressors. Map at goal. Venous lactate normalized. White count 20,000 with persistent bandemia. improve renal function/end organ dysfunction. antibiotics escalated to carbapenem in light of septic shock and penicillin/levofloxacin allergy. continue critical care management. T-Max 102.9. urine culture gram-negative bacteria. Blood cultures pending. renal ultrasound no evidence of obstructive uropathy August 26-patient doing a lot better. Enterobacter erogenous on culture multidrug-resistant. On ertapenem. DC vancomycin/Rocephin. Continue antibiotic for additional 7 to 10 days. Off pressors. Stable hemodynamics. Transfer to telemetry. Case discussed with family. Patient continues to have urge incontinence and will need outpatient follow-up with urology. Avoid oxybutynin at this time due to risk of urinary retention and persistent infection. No overnight fever chills. MAXIMUM TEMPERATURE 100.8 last evening. white count down to 17,000. bandemia resolved. creatinine down to 1.2. August 27-patient responding well to antibiotics. White count down to 10,500. improving fever with MAXIMUM TEMPERATURE 100.5.C. difficile negative.blood cultures negative to date.creatinine stable at 1.2. continue ertapenem. Anticipate discharge in 24-48 hours if clinically improved - Constitutional Vitals: Vital Signs Temp Pulse Resp BP Pulse Ox 98.0 F 71 18 133/69 94 08/27/17 12:00 08/27/17 12:00 08/27/17 12:00 08/27/17 12:00 08/27/17 12:00 Period Temp Pulse Resp BP Sys/Anthony Pulse Ox Last 24 Hr 98.0 F-100.5 F 70-91 18-24 133-145/61-78 91-98 Intake and Output 08/26/17 08/27/17 08/27/17 21:59 05:59 13:59 Intake Total 490 / 490 660 / 660 770 / 770 Output Total 225 / 225 600 / 600 1175 / 1175 Balance 265 / 265 60 / 60 -405 / -405 Weight 245 lb 8 oz Intake & Output: Intake & Output 08/26/17 08/27/17 08/27/17 21:59 05:59 13:59 Intake Total 490 / 490 660 / 660 770 / 770 Output Total 225 / 225 600 / 600 1175 / 1175 Balance 265 / 265 60 / 60 -405 / -405 Weight 245 lb 8 oz Intake: IV 50 / 50 INVanz 1 GM In Sodium Chloride 50 / 50 0.9% 50 ml @ 100 mls/hr IV Q24H [facility] Rx#:[id number] Oral 490 / 490 660 / 660 720 / 720 Output: Void Amount 225 / 225 600 / 600 975 / 975 Urine/Stool Mix 200 / 200 Other: Meal Dinner Lunch Percent of Meal Consumed 100% 100% Feeding Ability Assist with Tray Set Up Independent Stool Size Moderate Stool Color Brown Green Stool Consistency Loose # Voids 1 # Bowel Movements 1 General appearance: cooperative, no acute distress Exam: alert oriented nonlabored breathing No telemetry events No anxiety Medical - PN: Obj Da - Labs CBC & Chem 7: 08/27/17 04:08 08/27/17 04:08 Labs: Abnormal Lab Results 08/27/17 08/27/17 08/26/17 04:08 04:08 04:13 WBC RBC 3.79 L Hgb 11.6 L Hct 34.8 L RDW 14.6 H Plt Count 132 L Gran % Lymph % (Auto) Gran # Lymph # (Auto) [place] # (Auto) Seg Neutrophils % 83 H Band Neutrophils % Lymphocytes % 5 L Platelet Estimate Decreased A RBC Morphology Abnorm A Anisocytosis 1+ A VBG Lactic Acid Anion Gap Creatinine Glucose Calcium 8.1 L 8.0 L Phosphorus 2.3 L Albumin 3.1 L Urine RBC Urine WBC Urine Bacteria 08/26/17 08/25/17 08/25/17 04:13 10:42 02:51 WBC 17.1 H RBC 3.78 L Hgb 11.4 L Hct 34.8 L RDW 14.8 H Plt Count 119 L Gran % Lymph % (Auto) Gran # Lymph # (Auto) [place] # (Auto) Seg Neutrophils % 90 H Band Neutrophils % Lymphocytes % 4 L Platelet Estimate Decreased A RBC Morphology Anisocytosis VBG Lactic Acid 2.5 H Anion Gap Creatinine 1.4 H Glucose 106 H Calcium 7.7 L Phosphorus Albumin Urine RBC Urine WBC Urine Bacteria 08/25/17 08/24/17 08/24/17 02:51 22:45 21:18 WBC 20.3 H RBC 3.89 L Hgb 11.6 L Hct 35.5 L RDW 14.6 H Plt Count 139 L Gran % Lymph % (Auto) Gran # Lymph # (Auto) [place] # (Auto) Seg Neutrophils % Band Neutrophils % 16 H 18 H Lymphocytes % 5 L 7 L Platelet Estimate Decreased A RBC Morphology Anisocytosis VBG Lactic Acid 3.2 H Anion Gap Creatinine Glucose Calcium Phosphorus Albumin Urine RBC Urine WBC Urine Bacteria 08/24/17 08/24/17 08/24/17 21:18 21:18 21:15 WBC 23.0 H RBC Hgb Hct RDW Plt Count Gran % 86.6 H Lymph % (Auto) 5.7 L Gran # 19.9 H Lymph # (Auto) 1.3 L [place] # (Auto) 1.7 H Seg Neutrophils % Band Neutrophils % Lymphocytes % Platelet Estimate RBC Morphology Anisocytosis VBG Lactic Acid Anion Gap 18.0 H Creatinine 1.6 H Glucose 109 H Calcium Phosphorus Albumin Urine RBC > 182 H Urine WBC > 182 H Urine Bacteria 4+ A Meds: Medications Acetaminophen (Tylenol) 650 mg PO Q4-6HP PRN PRN Reason: PAIN/FEVER > 101 Hydrocodone Bitart/Acetaminophen (Lewis 5/325mg) 1 - 2 tab PO Q4-6HP PRN PRN Reason: PAIN LEVEL 3-6 Docusate Sodium (Colace) 100 mg PO BID [facility] Furosemide (Lasix) 20 mg IV DAILY [facility] Gabapentin (Neurontin) 300 mg PO TID [facility] Heparin Sodium (Porcine) (Heparin) 5,000 unit SQ Q12 [facility] Ertapenem 1 gm/ Sodium (Chloride) 50 mls @ 100 mls/hr IV Q24H [facility] Last Infusion: 08/27/17 13:11 Dose: Infused Acetaminophen (Ofirmev) 1,000 mg in 100 mls @ 200 mls/hr IV Q6HP PRN PRN Reason: PAIN/FEVER > 101 Levothyroxine Sodium (Synthroid) 88 mcg PO QAMAC [facility] Magnesium Hydroxide (Milk Of Magnesia) 30 ml PO HSP PRN PRN Reason: Constipation Mycophenolate Mofetil (Cellcept) 500 mg PO QNOON [facility] Last Admin: 08/27/17 12:15 Dose: 500 mg Mycophenolate Mofetil (Cellcept) 1,000 mg PO HS [facility] Ondansetron HCl (Zofran) 4 mg IV Q4-6HP PRN PRN Reason: Nausea And Vomiting Pyridostigmine [place] (Mestinon) 120 mg PO TID [facility] Senna/Docusate Sodium (Senna Plus Tablet) 1 tab PO HS [facility] Sodium Chloride (Saline Flush) 10 ml IV Q8 [facility] Medical - PN: A/P - Time Spent With Patient Total time spent is greater than 50% in coordination of care (as documented) at patient's floor/unit and/or counseling patient: 25 - 35 minutes (1) Septic shock Status: Acute Assessment and plan: Assessment- 82-year-old with a history of myasthenia gravis admitted with septic shock * MDR Enterobacter aerogenous UTI. Continue ertapenem (allergy to penicillin/ levofloxacin) through 09/02 * Septic shock elevated lactate and white count 23,000/bandemia clinically resolved. White count of 10,000 * ARF secondary to sepsis end organ dysfunction-likely back at baseline. creatinine 1.2. * Dyspnea-Await chest imaging * history of myasthenia gravis continue on mycophenolate/rivastigmine * Hypothyroidism on thyroxine * History of hypertension- on home meds * Neuropathy on gabapentin * Full CODE STATUS * Prophylaxis on heparin Plan * Continue ertapenem Through 09/02 * transfer to medical floor * chest imaging * pre-existing medical condition management as above * possible discharge in 24-48 hours if continues to improve Current Visit: Yes Medical - PN: Qual - VTE Deep Vein Thrombosis/Pulmonary Embolism Present on Admission: No
--- NOTE | 2017-08-27 13:39 | XRay Report ---
HISTORY: Reason for Exam:DECREASED BREATH SOUNDS; SOB FINDINGS: The lungs are clear but incompletely expanded. The heart, mediastinum, genoveva and pleura are normal. The aorta is mildly tortuous. Disc degeneration and arthritis are present at several levels in the mid and lower thoracic spine and upper lumbar spine. There has been no significant change since 06/25/17. IMPRESSION: Normal chest. Interpreted and Authenticated by: Miguel Alonzo 08/27/17
[2017-08-27] MEDS: METOPROLOL TARTRATE 25 MG TABLET PO SCH (20:27)
[2017-08-27] MEDS ORDERED: OXYBUTYNIN CHLORIDE PO SCH (21:00)
[2017-08-27] MEDS ORDERED: SENNOSIDES/DOCUSATE SODIUM 1 TAB TABLET PO SCH (21:00)
[2017-08-28] MEDS: 0.9 % SODIUM CHLORIDE 10 ML SYRINGE IV SCH (05:30)
[2017-08-28 06:38] LABS: Mean Cell Volume 90.8 fL (80.0-100.0); Mean Corpuscular HGB Conc 32.8 g/dL (31.0-36.0); Mean Corpuscular Hemoglobin 29.8 pg (26.0-34.0); Platelet Count 149 K/mcL (140-440); RBC 3.93 M/mcL (4.50-5.90); Red Cell Distribution Width 14.6 % (11.5-14.5)
[2017-08-28 06:48] LABS: ALT/SGPT 15 U/l (0-40); Albumin 3.2 gm/dL (3.2-5.2); Albumin/Globulin Ratio 0.9 (1.0-2.3); Alkaline Phosphatase 61 U/L (39-117); Bilirubin,Direct < 0.2 mg/dL (0.0-0.3); Blood Urea Nitrogen 13 mg/dl (8-23); Gamma Glutamyl Transpeptidase 13 U/L (8-61); Uric Acid 5.2 mg/dL (2.5-8.0)
[2017-08-28] MEDS ORDERED: LEVOTHYROXINE 88 MCG TABLET PO SCH (07:30)
--- NOTE | 2017-08-28 08:16 | Discharge Summary ---
Medical - DS: Prov Patient information: Note initiated : 08/28/17 at 8:14 am Service Date, if different from initiated Date: [] Patient: Issac Upton 82 y/o M admitted on 08/25/17 for Thinks has Bladder Infection/Sepsis, UTI. Chief Complaint: [] Date of admission: 08/25/17 01:07 Discharge date: 08/28/17 Primary care physician: Nico Falcon Consults: 08/24/17 23:29 Consult to Physician [CONS] Stat Comment: Consulting Provider: Prashant Pena Reason For Exam: Physician to Consult Medical - DS: Meds - Discharge Medications Prescriptions: Ertapenem [Invanz] 1 gm IV Q24H #6 vial Active and Home Medications: Home Medications mycophenolate mofetil 500 mg tablet 500 mg PO QNOON tab 01/04/15 [History Confirmed 08/25/17 Last Taken 08/24/17] pyridostigmine bromide 60 mg tablet 120 mg PO TID tab 01/04/15 [History Confirmed 08/24/17 Last Taken 08/24/17] metoprolol tartrate 25 mg tablet 12.5 mg PO BID #90 tab 09/16/16 [Rx Confirmed 08/24/17 Last Taken 08/24/17] levothyroxine 88 mcg tablet 88 mcg PO QDAY #90 tab 05/15/17 [Rx Confirmed Last Taken 08/24/17] Mycophenolate [Cellcept] 1,000 mg PO HS 08/25/17 [History Confirmed 08/25/17 Last Taken Unknown] Ertapenem [Invanz] 1 gm IV Q24H #6 vial 08/28/17 [Rx Last Taken Unknown] Medical - DS: Hosp Hospital course: DISCHARGE DIAGNOSIS * MDR Enterobacter aerogenous UTI. Continue ertapenem for additional 6 days as outpatient(allergy to penicillin/levofloxacin) * Septic shock .clinically resolved. White count normalized. * ARF secondary to sepsis end organ dysfunction-back to baseline. * Dyspnea-resolved. Chest x-ray no acute process * history of myasthenia gravis continue on mycophenolate/rivastigmine * Hypothyroidism on thyroxine * History of hypertension- continue home meds * Neuropathy on gabapentin BRIEF HOSPITAL COURSE Mr. Upton is a 82 year old M with a history of myasthenia gravis and recent back surgery and prostate surgery end of July who comes in with 3 days' onset of increasing weakness fatigue shaking chills burning sensation along with increasing frequency of urination. Patient ever since the urological procedure has had difficulty controlling urination and was started on oxybutynin by urology. Patient's symptoms improved for a few days however with the last week patient has gotten progressively weaker along with associated above symptoms. He endorses to low- grade fever but denies drenching sweats. Denies back pain. He was actually recovering fairly well after his back surgery and was able to perform activities of daily living without much difficulty. He is independent and lives with his Kali in [facility]. He denies bloody urine/diarrhea headache photophobia or he denies arthralgia myalgia or weight loss glandular swelling. initial workup in the ER was significant for a white count over 23,000 along with 18% bands,blood pressures 90s and fever 102.9. Patient received crystalloids and antibiotics. Significant pyuria was noted on UA. Subsequently hospitalist service was consulted. Patient was seen in room. Most of the history is obtained from patient. He appears lethargic but was able to anastomosis or questions. He is able to endorse history as above. 08/25-patient clinically improved. Weaning pressors. Map at goal. Venous lactate normalized. White count 20,000 with persistent bandemia. improve renal function/end organ dysfunction. antibiotics escalated to carbapenem in light of septic shock and penicillin/levofloxacin allergy. continue critical care management. T-Max 102.9. urine culture gram-negative bacteria. Blood cultures pending. renal ultrasound no evidence of obstructive uropathy August 26-patient doing a lot better. Enterobacter erogenous on culture multidrug-resistant. On ertapenem. DC vancomycin/Rocephin. Continue antibiotic for additional 7 to 10 days. Off pressors. Stable hemodynamics. Transfer to telemetry. Case discussed with family. Patient continues to have urge incontinence and will need outpatient follow-up with urology. Avoid oxybutynin at this time due to risk of urinary retention and persistent infection. No overnight fever chills. MAXIMUM TEMPERATURE 100.8 last evening. white count down to 17,000. bandemia resolved. creatinine down to 1.2. August 27-patient responding well to antibiotics. White count down to 10,500. improving fever with MAXIMUM TEMPERATURE 100.5.C. difficile negative.blood cultures negative to date.creatinine stable at 1.2. continue ertapenem. Anticipate discharge in 24-48 hours if clinically improved August 28-Patient feels a lot improved. White count 6000. Ongoing ertapenem for Enterobacter UTI. Continue additional 6 days IV ertapenem as outpatient. Discharging home with instructions medications as below. Patient feels at baseline. No overnight events or any fever chills abdominal pain nausea vomiting. Discharge diagnosis: . - Time Spent with Patient Total time spent providing and/or coordinating discharge services: Greater than 30 minutes Medical - DS: Exam - Constitutional Vitals: Vital Signs Temp Pulse Resp BP BP Pulse Ox 08/28/17 06:46 98.5 F 18 131/70 90 08/28/17 06:37 80 08/28/17 03:38 98.0 F 75 20 138/69 95 08/28/17 02:00 20 93 08/27/17 23:36 98.4 F 76 20 144/71 90 08/27/17 19:37 98.2 F 78 18 138/69 94 08/27/17 16:00 97.9 F 68 18 130/72 94 08/27/17 12:00 98.0 F 71 18 133/69 94 08/27/17 09:50 98.6 F 08/27/17 09:05 100.5 F H Intake and Output 08/27/17 08/28/17 08/28/17 21:59 05:59 13:59 Intake Total 320 / 320 225 / 225 Output Total 1000 / 1000 600 / 600 Balance -680 / -680 -375 / -375 Intake: Oral 320 / 320 225 / 225 Output: Void Amount 1000 / 1000 600 / 600 Other: Meal Dinner Percent of Meal Consumed 100% Stool Size Small Stool Color Brown Stool Consistency Soft # Voids 1 1 # Bowel Movements 1 1 Weight 238 lb 3.2 oz Medical - DS: Data Labs on day of discharge: Labs from last 24 hours 08/28/17 08/28/17 08/27/17 05:08 05:08 09:10 WBC 6.9 RBC 3.93 L Hgb 11.7 L Hct 35.7 L MCV 90.8 MCH 29.8 MCHC 32.8 RDW 14.6 H Plt Count 149 MPV 8.8 Total Counted Pending Band Neutrophils % Not Reportable Platelet Estimate Pending RBC Morphology Pending Sodium 137 Potassium 3.9 Chloride 100 Carbon Dioxide 27 Anion Gap 10.0 BUN 13 Creatinine 1.1 GFR Calculation 63 Glucose 102 Uric Acid 5.2 Calcium 8.2 L Phosphorus 2.6 L Magnesium 2.1 Total Bilirubin < 0.2 Direct Bilirubin < 0.2 GGT 13 AST 17 ALT 15 Alkaline Phosphatase 61 Lactate Dehydrogenase 167 Total Protein 6.6 Albumin 3.2 Globulin 3.4 Albumin/Globulin Ratio 0.9 L Triglycerides 110 Vancomycin Trough 8.3 Preliminary micro results at discharge 08/24/17 21:18 Blood Culture - Preliminary Blood 08/24/17 21:40 Blood Culture - Preliminary Blood Medical - DS: A/P - Patient/Caregiver Discharge Instructions Activity: increase activity as tolerated Diet: Regular Diet Additional Instructions: Follow-up PCP in 5 days. I recommend primary care physician to check CBC BMP UA as a posthospital follow -up in 1 week. Antibiotics for additional 6 days in outpatient infusion center Continue aggressive bowel regimen to prevent constipation Continue fall precautions All meals on chair sitting upright at 90 degrees to prevent aspiration Return to ER if worsening fever chills shortness of breath, diarrhea, bleeding Review risk and side effect profile of medications including antibiotics. Side effect may include mild to severe reaction including rash, diarrhea, cdiff and even which can be prevented by close follow-up with PCP and monitoring for side effects Continue diet and activity as advised Discussed importance of medication adherence Please review medication list with patient prior to discharge Please schedule follow-up with PCP/Providers prior to discharge and provide printouts Portions of this chart may have been created with [employer] voice recognition software. Occasional wrong-word or ?sound-like? substitutions may have occurred due to the inherent limitations of voice recognition software. Please read the chart carefully and recognize, using context, where the substitutions have occurred. CC- PCP Prescriptions: Ertapenem [Invanz] 1 gm IV Q24H #6 vial - Problem Maintenance (1) Septic shock Status: Acute - Follow up Plan Follow up with: Nico Falcon MD [Primary Care Provider] - Disposition: Home, Self-Care Prognosis: Fair Rehab Potential: Good I certify that the patient requires SNF services: No Overall status at discharge: patient is progressing back to baseline Medical - DS: Qual - VTE Deep Vein Thrombosis/Pulmonary Embolism Present on Admission: No
[2017-08-28] MEDS: DOCUSATE SODIUM 100 MG CAPSULE PO SCH (08:18)
[2017-08-28] MEDS: GABAPENTIN 300 MG CAPSULE PO SCH (08:18)
[2017-08-28] MEDS: HEPARIN 5,000 UNIT/ML VIAL SQ SCH (08:19)
[2017-08-28] MEDS: METOPROLOL TARTRATE 25 MG TABLET PO SCH (08:20)
[2017-08-28] MEDS: PYRIDOSTIGMINE 60 MG TABLET PO SCH (08:23)
[2017-08-28] MEDS ORDERED: FUROSEMIDE 20 MG/2 ML VIAL IV SCH (09:00)
[2017-08-28 09:21] LABS: Band Neutrophils % 3 % (0-10); Eosinophils % (Manual) 3 % (0-7); Lymphocytes % 8 % (15-49); Monocytes % (Manual) 10 % (1-12); Platelet Estimate NORMAL (NORMAL); RBC Morphology NORMAL (NORMAL); Segmented Neutrophils % 75 % (38-78)
[2017-08-28] MEDS: ERTAPENEM 1 GM in 0.9 % SODIUM CHLORIDE 50 ML IV SCH (09:49)
[2017-08-28] MEDS: MYCOPHENOLATE 250 MG CAPSULE PO SCH (11:48)
== END 2017-08-28 12:20 | disposition home or self-care (01) | DRG 871 ==
LOC: ED 20:34 → ICU 08-25 01:07 → MEDSUR 08-27 09:54
PROVIDERS: ADMIT Internal Medicine; ATTEND Internal Medicine

== ENCOUNTER 2019-07-10 03:59 | Observation (INO) ==
[2019-07-10] MEDS ORDERED: 0.9 % SODIUM CHLORIDE 1,000 ML IV ONE (04:44)
[2019-07-10] MEDS ORDERED: cefTRIAXone 1 GM VIAL IV ONE (04:44)
[2019-07-10] MEDS ORDERED: CLINDAMYCIN 900 MG in DEXTROSE 5% IN WATER 50 ML IV ONE (04:45)
--- NOTE | 2019-07-10 04:49 | Emergency Department Note ---
Upper Extremity HPI - General Chief Complaint: Animal Bite Stated Complaint: cat bite Time Seen by Provider: 07/10/19 04:40 Mode of arrival: ambulatory - History of Present Illness HPI Narrative: 84-year old patient presenting to the emergency department with a chief complaint of Cat bite to the right hand. This issue occurred 4 days ago. Exacerbating features are attempting to move it, pressure. Ameliorating factors are immobilization. Patient denying symptoms of pain out of proportion to the extremity, pallor to the extremity, other color change, or paresthesias in the extremity. Patient denies injury to other parts of the body at the same time. - Related Data Home Medications Medication Instructions Recorded Confirmed mycophenolate mofetil 500 mg tablet 500 mg PO .COMPLEX 09/01/17 06/22/19 aspirin 81 mg tablet,delayed 81 mg PO QDAY 07/06/18 06/22/19 release fluticasone propionate 50 INTRANASAL #16 g 10/18/18 06/22/19 mcg/actuation nasal spray,suspension zinc 50 mg tablet 50 mg PO QDAY 06/22/19 06/22/19 Previous Rx's Medication Instructions Recorded cholecalciferol (vitamin D3) 50 2,000 unit PO QDAY #30 tab 10/07/17 mcg (2,000 unit) tablet levothyroxine 88 mcg tablet 88 mcg PO QDAY #90 tab 06/09/19 Allergies Allergy/AdvReac Type Severity Reaction Status Date / Time Penicillins Allergy Intermediate Hives Verified 06/22/19 15:08 levofloxacin [From Levaquin] AdvReac Severe Contraindicated Verified 06/22/19 15:08 r/t Myasthenia Gravis lisinopril AdvReac Mild Cough Verified 06/22/19 15:08 Review of Systems All systems ED: reviewed and negative except as stated. Past Medical History - Past Medical History [facility] Narrative: All Active Problems (Last Updated 06/22/19 @ 15:41 by Nhan Troncoso DO) Prediabetes (Chronic) JACKY on CPAP (Chronic) Lumbar radiculopathy, right (Chronic) Orthostasis (Chronic) Pacemaker (Chronic) Bradycardia (Acute) Asystole (Acute) Heart block AV second degree (Acute) Palpitations (Acute) Hyperglycemia (Chronic) Arrhythmia (Chronic) JACKY (obstructive sleep apnea) (Chronic) First degree atrioventricular block (Chronic) Poor balance (Chronic) Actinic keratoses (Chronic) Vitamin D deficiency (Chronic) Memory loss (Chronic) Right leg weakness (Chronic) Right leg weakness (Chronic) Spinal stenosis of lumbar region (Acute) Fall (Acute) CKD (chronic kidney disease), stage III (Chronic) Renal insufficiency (Chronic) Weakness (Chronic) Greater trochanteric bursitis of both hips (Chronic) Muscle pain (Chronic) Low back pain (Chronic) Skin lesions (Acute) Enlarged prostate (Chronic) Weight loss (Acute) Bronchitis (Chronic) Chronic low back pain (Chronic) JACKY treated with BiPAP (Chronic) Edema (Chronic) 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) Spinal stenosis of lumbar region (Chronic) History of colonoscopy (Chronic) Tinnitus (Chronic) Tachycardia (Chronic) Rhinitis, chronic (Chronic) RAD (reactive airway disease) (Chronic) PVD (peripheral vascular disease) (Chronic) Patent foramen ovale (Chronic) Paresthesias (Chronic) Orthostasis (Chronic) Obesity (Chronic) Myasthenia gravis without (acute) exacerbation (Chronic) Muscle cramps (Chronic) IBS (irritable bowel syndrome) (Chronic) Hypothyroidism (Chronic) Hypertension, essential, benign (Chronic) Hyperlipidemia (Chronic) Hemorrhoids (Chronic) Hearing loss (Chronic) Headache (Chronic) Osteoarthritis of lumbar spine (Chronic) Diverticulosis of colon (Chronic) DDD (degenerative disc disease) (Chronic) Cough (Chronic) Asthma (Chronic) Allergic rhinitis (Chronic) Medical history: Reports: asthma, COPD, DM (But here today denies this.), hyperlipidemia, hypertension, obesity, osteoporosis, peripheral artery disease, thyroid disease, other (Myasthenia gravis for which he takes Mestinon and CellCept.). Denies: cancer, CVA, myocardial infarction, renal disease, TIA Psychiatric history: Denies: anxiety, depression Surgical history ED: Reports: orthopedic, other (Decompression lumbar spine, 2--18, Dr. Jackson. Fusion of lower lumbar segment 1972), tonsillectomy (And adenoidectomy), other (2 prostate ablations. ) - Social History smoking status: Never smoker Alcohol use: Reports: Rarely (2-3 times per month) Drug use: Reports: none Physical Exam General: Alert, interactive, appropriate Head: Atraumatic, normocephalic Eyes: Extraocular movements intact Neck: Trachea midline, full range of motion Chest: Symmetrical chest wall rise, breathing normally Cardiovascular: Patient with excellent perfusion to the extremities Extremities: Dorsum of the right hand noted to have significant erythema and swelling edema, patient does have good perfusion distally to the fingertips patient with painful extension patient without issues on flexion aside from tightness secondary to swelling and edema. Neuro: Alert, oriented x3, cranial nerves II through XII grossly intact, normal gait Psychiatric: Normal affect normal mood Course Vital Signs Temperature 97.5 F 07/10/19 04:09 Pulse Rate 88 07/10/19 04:09 Respiratory Rate 18 07/10/19 04:09 Blood Pressure 158/72 07/10/19 04:09 Pulse Oximetry (%) 96 07/10/19 04:09 Temperature 97.5 F 07/10/19 04:09 Pulse Rate 88 07/10/19 04:09 Respiratory Rate 18 07/10/19 04:09 Blood Pressure 158/72 07/10/19 04:09 Pulse Oximetry (%) 96 07/10/19 04:09 Extremity Injury, Upper - MDM Narrative Medical decision making narrative: This patient presenting with chief complaint of cat bite cellulitis. Patient was evaluated with combination of history/physical exam/radiologic evaluation. Diagnosis conclusion this case is patient has sustained a cellulitis secondary to cat bite potentially deeper infection. Patient is without evidence of acute neurovascular compromise of the extremity. I discussed the case with Dr. Laboy hand surgeon, consensus medical opinion is to provide antibiotics admit the patient for further evaluation and management. Disposition Pt seen by RN HEMODIALYSIS/PA only: No Clinical Impression: Cat bite Qualifiers: Encounter type: initial encounter Qualified Code(s): W55.01XA - Bitten by cat, initial encounter Disposition: Xfer As Outpt/Obs ([facility]) Condition: Serious Referrals: Nhan Troncoso DO [Primary Care Provider] -
[2019-07-10] MEDS ORDERED: HYDROmorphone 2 MG/ML VIAL IV PRN ×2 (04:54→13:00)
[2019-07-10] MEDS ORDERED: ONDANSETRON 4 MG/2 ML VIAL IV PRN ×2 (04:54→13:00)
[2019-07-10] MEDS ORDERED: CLINDAMYCIN 600 MG/4 ML VIAL ONE (05:37)
[2019-07-10 06:46] LABS: Basophils # (Auto) 0.04 K/mcL (0.00-0.30); Basophils % (Auto) 0.5 % (0.0-2.0); Eosinophils # (Auto) 0.25 K/mcL (0.00-0.70); Eosinophils % (Auto) 3.3 % (0.0-7.0); Granulocytes % (Auto) 64.7 % (38.0-78.0); Hematocrit 40.9 % (40.1-51.0); Hemoglobin 12.8 g/dL (13.7-17.5); Lymphocytes % (Auto) 19.9 % (15.5-49.0); Mean Cell Volume 91.9 fL (80.0-100.0); Mean Corpuscular HGB Conc 31.3 g/dL (31.0-36.0); Mean Platelet Volume 10.7 fL (7.4-10.4); Monocytes # (Auto) 0.87 K/mcL (0.10-0.90); Monocytes % (Auto) 11.6 % (1.0-12.0); Platelet Count 168 K/mcL (140-440); RBC 4.45 M/mcL (4.63-6.08); Red Cell Distribution Width 14.2 % (11.5-14.5); WBC 7.5 K/mcL (4.50-11.00)
[2019-07-10 07:07] LABS: ALT/SGPT 12 U/l (0-40); AST/SGOT 17 U/l (0-37); Albumin 3.9 gm/dL (3.2-5.2); Albumin/Globulin Ratio 1.2 (1.0-2.3); Alkaline Phosphatase 72 U/L (39-117); Bilirubin,Total 0.3 mg/dL (0.0-1.0); Blood Urea Nitrogen 17 mg/dl (8-23); Calcium 8.9 mg/dl (8.6-10.4); Carbon Dioxide 22 mmol/L (22-30); Chloride 101 mmol/L (96-108); Globulin 3.3 gm/dL (2.2-3.7); Glomerular Filtration Rate 56; Glucose 97 mg/dL (70-105)
--- NOTE | 2019-07-10 09:06 | XRay Report ---
CLINICAL INFORMATION:Preoperative chest x-ray. Cat bite. 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 No parenchymal infiltrate or mass. No focal pulmonary parenchymal abnormality. Heart size and vascularity are normal. Kiki and mediastinum are negative. There is no pulmonary edema. There is no pleural fluid IMPRESSION: Negative AP chest Interpreted and Authenticated by: Nhan Mccoy 07/10/19
[2019-07-10] MEDS: DOCUSATE SODIUM 100 MG CAPSULE PO SCH ×2 (09:21→20:06)
[2019-07-10] MEDS: 0.9 % SODIUM CHLORIDE 10 ML SYRINGE IV SCH ×5 (09:21→20:07)
--- NOTE | 2019-07-10 11:11 | Consultation ---
DATE OF CONSULTATION: 07/10/2019 CONSULTATION CHIEF COMPLAINT: Right hand pain. HISTORY OF PRESENT ILLNESS: This is an 84-year-old male who presented to the Emergency Department complaining of a cat bite at the dorsal aspect of his right hand. The incident occurred approximately 4 days ago, though the patient is unsure if this is a definitive time period in which he got bit by the cat. He denies any significant pain except for when he extends his fingers. He otherwise denies any systemic symptoms such as fever or chills and has no other complaints today. MEDICATIONS: Include mycophenolate 500 mg tablet, aspirin 81 mg p.o. every day, fluticasone intranasal, zinc 50 mg tablet, vitamin D3 2000 units p.o. every day, levothyroxine 88 mcg tablet every day. ALLERGIES: INCLUDE PENICILLINS, LEVOFLOXACIN, AND LISINOPRIL. REVIEW OF SYSTEMS: Negative except stated in the HPI. PAST MEDICAL HISTORY: His past medical history is extensive and can be seen in the history physical. It is otherwise noncontributory to his current problem. He does deny being diabetic. Does have asthma, COPD, hyperlipidemia, hypertension, obesity, osteoporosis, peripheral artery disease, and thyroid disease as well as myasthenia gravis. PSYCHIATRIC HISTORY: Denies any anxiety or depression and is otherwise negative. PAST SURGICAL HISTORY: Includes lumbar decompression and fusion in 2018, tonsillectomy and total knee arthroplasty. SOCIAL HISTORY: The patient denies any tobacco use, recreational drug use. He does report rare alcohol use. PHYSICAL EXAMINATION: VITAL SIGNS: Blood pressure is 158/72, pulse 88, respiratory rate 18, temperature is 97.5 Fahrenheit, pulse ox 96% on room air. GENERAL: The patient is alert and oriented. He is appropriate and cooperative. HEAD: Atraumatic, normocephalic. NECK: Supple, without lymphadenopathy. ENT: His pupils are equal, round, and reactive to light and accommodation. ENT is otherwise unremarkable. RESPIRATORY: The lungs are clear to auscultation bilaterally without any wheezes, rhonchi or rales. CARDIOVASCULAR: Regular rate and rhythm. The patient does have a pacemaker right hand inspection reveals diffuse erythema over the dorsum of the hand as well as puncture bermudez over the mid third metacarpal on the dorsum of the hand as well as a small puncture over the distal aspect of the fourth metacarpal. There is no active drainage or ecchymosis. Passive and active extension of the digits is limited due to pain. There is diffuse tenderness to palpation over the dorsum of the hand. Distal sensation, capillary refill, pulses are normal. NEURO: The patient is alert and oriented x3. PSYCHIATRIC: The patient has normal affect, normal mood. ASSESSMENT: Cat bite with cellulitis and tenosynovitis of the right hand. Infective tenosynovitis. PLAN: After consulting the patient performing physical exam, the patient does have an early infective tenosynovitis of at least the third digit, but likely the third and fourth digits. I recommend formal I and D in the operating room, which would be performed by Dr. Laboy. Risks, complications, and possible limitations were discussed with the patient who like to proceed with surgery and consented him for this. We will also continue IV antibiotics and he will follow up with [facility] in approximately 2 weeks for suture removal after surgery. The patient agrees with this plan and his questions were addressed. [email or web address] Job ID: [id number] Doc ID: [id number] Camryn Sotomayor PA-C
[2019-07-10] MEDS ORDERED: ceFAZolin 2 GM in DEXTROSE 5% IN WATER 50 ML IV SCH (11:45)
[2019-07-10] MEDS ORDERED: ONDANSETRON 4 MG/2 ML VIAL IV ONE (12:00)
[2019-07-10] MEDS ORDERED: GLYCOPYRROLATE 0.2 MG/ML VIAL IV ONE (12:00)
[2019-07-10] MEDS ORDERED: PHENYLEPHRINE 10 MG/ML VIAL IV ONE (12:00)
[2019-07-10] MEDS ORDERED: fentaNYL 100 MCG/2 ML VIAL IV ONE (12:00)
[2019-07-10] MEDS ORDERED: PROPOFOL 200 MG/20 ML VIAL IV ONE (12:00)
[2019-07-10] MEDS ORDERED: DEXAMETHASONE 10 MG/ML VIAL IV ONE (12:00)
[2019-07-10] MEDS ORDERED: KETAMINE 100 MG/ML ML IV ONE (12:00)
[2019-07-10] MEDS ORDERED: ROPIVACAINE HCL/PF 30 ML VIAL IJ ONE (12:00)
[2019-07-10] MEDS ORDERED: LIDOCAINE HCL/PF 100 MG/5 ML SYRINGE IV ONE (12:00)
[2019-07-10] MEDS ORDERED: NALOXONE HCL 0.4 MG/ML VIAL IV PRN (12:57)
[2019-07-10] MEDS ORDERED: LACTATED RINGERS 250 ML IV PRN (12:57)
[2019-07-10] MEDS ORDERED: METOPROLOL TARTRATE 5 MG/5 ML VIAL IV PRN (12:57)
[2019-07-10] MEDS ORDERED: ACETAMINOPHEN 1,000 MG/100 ML BOTTLE IV ONE (12:57)
[2019-07-10] MEDS ORDERED: FLUMAZENIL 0.1 MG/ML ML IV PRN (12:57)
[2019-07-10] MEDS ORDERED: IPRATROPIUM/ALBUTEROL 3 ML AMPUL.NEB NEB PRN (12:57)
[2019-07-10] MEDS ORDERED: BENZOCAINE/MENTHOL 1 LOZENGE PO PRN ×2 (12:57→13:00)
[2019-07-10] MEDS ORDERED: LABETALOL 5 MG/ML ML IV PRN (12:57)
[2019-07-10] MEDS ORDERED: METHOCARBAMOL 1,000 MG/10 ML VIAL IV PRN (12:57)
[2019-07-10] MEDS ORDERED: LACTATED RINGERS 1,000 ML IV SCH (13:00)
--- NOTE | 2019-07-10 13:12 | Discharge Summary ---
Ortho Discharge Plan - General - Patient Instructions Diet: Regular Diet Activity: activity as tolerated Dressing Care: Cover dressing in shower - Follow Up Plan Follow Up Appointments: Nhan Troncoso DO [Primary Care Provider] - Mike Laboy MD [Physician] - 07/13/19 (Follow up [facility] 07/13/19) Disposition: Home, Self-Care Prognosis: Good Rehab Potential: Good I certify that the patient requires SNF services: No Overall status at discharge: patient is back to baseline - Orders For Discharge Prescriptions: Hydrocodone/APAP 7.5/325Mg [[place] 7.5-325Mg] 1 - 2 tab PO Q4-6HP PRN #65 tab PRN Reason: Pain Prescription Printed
--- NOTE | 2019-07-10 13:16 | Brief Operative Note ---
Date of procedure: 07/10/19 Pre-op diagnosis: R Dorsal Hand Abscess, R Hand Suppurative Extensor Tenosynovitis Post-op diagnosis: same Procedure: 1. Debridement and irrigation right hand dorsal abscess 2. Debridement and irrigation right hand extensor tendon sheath Grafts/Implants: No Anesthesia: GLMA Findings: As above Complications: none Surgeon: Mike Laboy Estimated blood loss (cc): 5 Specimens Removed/Pathology: other (Aerobic/Anaerobic cultures right hand extensor tendon sheath) Condition: stable Disposition: PACU
[2019-07-10] MEDS: fentaNYL 100 MCG/2 ML VIAL IV PRN ×2 (13:17→13:19)
[2019-07-10] MEDS: HYDROCODONE/APAP 7.5/325MG TABLET PO PRN (13:55)
[2019-07-10] MEDS ORDERED: ceFAZolin 1 GM VIAL ONE (20:02)
[2019-07-10] MEDS: ceFAZolin 1 GM VIAL IV SCH (20:06)
[2019-07-10] MEDS ORDERED: SENNOSIDES 1 TABLET PO SCH (21:00)
[2019-07-11] MEDS: ceFAZolin 1 GM VIAL IV SCH (03:35)
[2019-07-11] MEDS: HYDROCODONE/APAP 7.5/325MG TABLET PO PRN ×5 (03:35→20:07)
[2019-07-11] MEDS: 0.9 % SODIUM CHLORIDE 10 ML SYRINGE IV SCH ×4 (05:16→14:31)
[2019-07-11] MEDS ORDERED: LEVOTHYROXINE 88 MCG TABLET PO SCH (07:30)
--- NOTE | 2019-07-11 07:32 | Operative Note ---
DATE OF OPERATION: 07/10/2019 PREOPERATIVE DIAGNOSES: 1. Right dorsal hand abscess. 2. Right hand suppurative extensor tenosynovitis. POSTOPERATIVE DIAGNOSES: 1. Right dorsal hand abscess. 2. Right hand suppurative extensor tenosynovitis. PROCEDURE: 1. Debridement and irrigation of the right hand dorsal abscess. 2. Debridement and irrigation of right hand extensor tendon sheath. PRIMARY SURGEON: Mike Laboy MD ANESTHESIA: General with laryngeal mask. ESTIMATED BLOOD LOSS: 5 mL DRAINS: A 1/4-inch Yanet drain placed deep to the extensor tendons. COMPLICATIONS: None. FINAL SPONGE COUNT: Correct. SPECIMENS: Aerobic and anaerobic cultures of the right hand dorsal aspect. INDICATION: The patient is an 84-year-old right hand dominant male who about 5 days ago sustained a cat bite on the dorsum of his right hand with worsening pain, swelling, redness, loss of function and motion. His physical examination demonstrates two dorsal hand puncture wounds with erythema, induration and edema on the dorsum of the hand with tenderness to palpation, limited range of motion. The patient and family verbalized that they understood the proposed procedure with the associated risks and benefits and consented. DESCRIPTION OF PROCEDURE: The patient was taken to the operating suite and placed supine on the operating table. General anesthesia with attained with a laryngeal mask. After adequate anesthesia was verified, a tourniquet was then placed in the proximal aspect of his right arm and the right upper extremity was then sterilely prepped and draped in the usual fashion. The two puncture wounds were identified. These were then marked. A longitudinal incision was made beginning at the distal aspect of the middle finger metacarpal extending to the carpus incorporating the two puncture wounds. After this demonstrated to be in good position, the incision was then made. Sharp dissection was taken down through the skin and subcutaneous tissues. Subcutaneous tissues were bluntly divided. Hemostasis was obtained with electrocautery. At this time, there was seen to be some cloudy fluid, no gross purulence noted. Aerobic and anaerobic cultures were obtained at this time. Next, there was seen to be significant suppurative tenosynovitis involving the extensor tendons. Next, with the use of sharp and blunt dissection, all necrotic tissue was removed from the dorsum of the hand. The infected synovium over the extensor tendons was meticulously dissected free of all the extensor tendons both on the dorsal and deep surfaces. After necrotic tissue and the infected tenosynovitis had been excised, copious irrigation with a liter of sterile saline solution, repeat debridement, repeat irrigation with a second liter of sterile saline solution, another debridement, a final liter of sterile saline solution, a final debridement. All necrotic and/or foreign material had been removed. All infected synovitic tissue had been removed off the extensor tendons. After the final irrigation, the skin edges were trimmed back about 2 mm. After the final irrigation a 1/4-inch Yanet drain was placed deep to the extensor tendons and the skin was then closed with 3-0 nylon in interrupted sutures. A sterile bulky hand and wrist dressing was applied. A volar splint was applied. The patient was awakened, transferred to the rmizpah and to the recovery room in stable condition. The patient tolerated the procedure well. Estimated blood loss was 5 mL. Drains included 1/4-inch [place] drain placed deep to the extensor tendons. Complications were none. Final sponge count correct. Specimens include aerobic and anaerobic cultures of the dorsal abscess. [email or web address] Job ID: [id number] Doc ID: [id number] Mike Laboy MD
[2019-07-11] MEDS: DOCUSATE SODIUM 100 MG CAPSULE PO SCH (09:43)
[2019-07-11] MEDS ORDERED: MYCOPHENOLATE 250 MG CAPSULE PO SCH ×2 (12:00→21:00)
[2019-07-11] MEDS ORDERED: ceFAZolin 1 GM VIAL IV ONE ×2 (12:34→21:00)
[2019-07-12] MEDS ORDERED: ceFAZolin 1 GM VIAL ONE (06:13)
== END 2019-07-11 20:20 | disposition home or self-care (01) ==
LOC: MEDSUR 03:59 → ED 03:59 → MEDSUR 06:30
PROVIDERS: ADMIT Orthopaedic Surgery Hand Surgery; ATTEND Orthopaedic Surgery Hand Surgery

== ENCOUNTER 2023-07-06 11:20 | Inpatient (IN) ==
[2023-07-06 12:19] LABS: Appearance,Urine Cloudy (Clear); Bacteria,Urine Many /hpf (0); Bilirubin,Urine Negative (Negative); Color,Urine Yellow; Culture Indicated,Urine Yes; Glucose,Urine (UA) Negative (Negative); Ketones,Urine Negative (Negative); Leukocyte Esterase,Urine Small /uL (Negative); Mucus,Urine Few /hpf; Nitrate,Urine Positive (Negative); PH,Urine 5.5 (5.0-9.0); Protein,Urine 30 mg/dL (Negative); Urine Blood Moderate ery/mcL (Negative); Urine RBC 23 /hpf (0-3); Urine Squamous Epithelial Cell < 1 /hpf (0-4); Urine Transitional Epi Cells 3 /hpf (0-2); Urine WBC > 182 /hpf (0-4); Urobilinogen,Urine Normal
[2023-07-06 12:33] LABS: Basophils # (Auto) 0.05 K/mcL (0.00-0.30); Basophils % (Auto) 0.3 % (0.0-2.0); Eosinophils # (Auto) 0.01 K/mcL (0.00-0.70); Eosinophils % (Auto) 0.1 % (0.0-7.0); Hemoglobin 12.5 g/dL (13.7-17.5); Lymphocytes # (Auto) 0.73 K/mcL (1.50-4.80); Lymphocytes % (Auto) 4.5 % (15.5-49.0); Mean Cell Volume 94.1 fL (80.0-100.0); Mean Corpuscular HGB Conc 31.3 g/dL (31.0-36.0); Mean Platelet Volume 10.1 fL (8.8-12.5); Monocytes # (Auto) 1.16 K/mcL (0.10-0.90); Monocytes % (Auto) 7.1 % (1.0-12.0); Neutrophils % (Auto) 87.6 % (38.0-78.0); Platelet Count 190 K/mcL (140-440); RBC 4.25 M/mcL (4.63-6.08); Red Cell Distribution Width 14.2 % (11.5-14.5); WBC 16.3 K/mcL (4.5-11.0)
[2023-07-06] MEDS: ACETAMINOPHEN 500 MG TABLET PO ONE (12:50)
[2023-07-06 12:51] LABS: ALT/SGPT 6 U/L (<40); AST/SGOT 23 U/L (<40); Albumin 4.1 gm/dL (3.2-5.2); Albumin/Globulin Ratio 1.3 (1.0-2.3); Alkaline Phosphatase 71 U/L (39-117); Bilirubin,Total 0.8 mg/dL (0.1-1.0); Blood Urea Nitrogen 29 mg/dL (8-23); Calcium 9.2 mg/dL (8.6-10.4); Carbon Dioxide 22 mmol/L (22-30); Chloride 99 mmol/L (96-108); Globulin 3.2 gm/dL (2.2-3.7); Glomerular Filtration Rate 41; Glucose 118 mg/dL (70-105)
[2023-07-06] MEDS: CEFEPIME 2 GM VIAL IV ONE (13:31)
[2023-07-06] MEDS: 0.9 % SODIUM CHLORIDE 500 ML IV ONE (14:28)
[2023-07-06] MEDS ORDERED: POTASSIUM CHLORIDE 40 MEQ in DEXTROSE 5% IN WATER 500 ML IV PRN (20:26)
[2023-07-06] MEDS ORDERED: SENNOSIDES 1 TABLET PO PRN (20:26)
[2023-07-06] MEDS ORDERED: POLYETHYLENE GLYCOL 3350 17 GM PACKET PO PRN (20:26)
[2023-07-06] MEDS ORDERED: POTASSIUM CHLORIDE 20 MEQ TABLET PO PRN ×2 (20:26)
[2023-07-06] MEDS ORDERED: MAGNESIUM SULFATE 2 GM/50 ML BAG IV PRN (20:26)
[2023-07-06] MEDS ORDERED: IPRATROPIUM/ALBUTEROL 3 ML AMPUL.NEB NEB PRN (20:26)
[2023-07-06] MEDS ORDERED: ENALAPRILAT 1.25 MG/ML VIAL IV PRN (20:26)
[2023-07-06] MEDS ORDERED: ONDANSETRON 4 MG/2 ML VIAL IV PRN (20:26)
[2023-07-06] MEDS: 0.9 % SODIUM CHLORIDE 10 ML SYRINGE IV SCH (21:53)
[2023-07-06] MEDS: CEFEPIME 1 GM VIAL IV SCH (21:53)
[2023-07-06] MEDS: DOCUSATE SODIUM 100 MG CAPSULE PO SCH (21:54)
[2023-07-06] MEDS: GABAPENTIN 100 MG CAPSULE PO SCH (21:54)
[2023-07-06] MEDS: amLODIPine 5 MG TABLET PO SCH (21:54)
[2023-07-06] MEDS: LOSARTAN 50 MG TABLET PO SCH (21:54)
[2023-07-07 05:48] LABS: Basophils # (Auto) 0.05 K/mcL (0.00-0.30); Basophils % (Auto) 0.2 % (0.0-2.0); Eosinophils # (Auto) 0.01 K/mcL (0.00-0.70); Eosinophils % (Auto) 0 % (0.0-7.0); Hemoglobin 11.2 g/dL (13.7-17.5); Lymphocytes # (Auto) 1.11 K/mcL (1.50-4.80); Lymphocytes % (Auto) 5.4 % (15.5-49.0); Mean Cell Volume 96.9 fL (80.0-100.0); Mean Corpuscular HGB Conc 30.3 g/dL (31.0-36.0); Mean Platelet Volume 9.6 fL (8.8-12.5); Monocytes # (Auto) 1.93 K/mcL (0.10-0.90); Monocytes % (Auto) 9.4 % (1.0-12.0); Neutrophils % (Auto) 84.6 % (38.0-78.0); Platelet Count 163 K/mcL (140-440); RBC 3.82 M/mcL (4.63-6.08); Red Cell Distribution Width 14.5 % (11.5-14.5); WBC 20.6 K/mcL (4.5-11.0)
[2023-07-07 06:29] LABS: ALT/SGPT 9 U/L (<40); AST/SGOT 29 U/L (<40); Albumin 3.6 gm/dL (3.2-5.2); Albumin/Globulin Ratio 1.2 (1.0-2.3); Alkaline Phosphatase 62 U/L (39-117); Bilirubin,Direct 0.4 mg/dL (<0.3); Bilirubin,Total 1.1 mg/dL (0.1-1.0); Blood Urea Nitrogen 29 mg/dL (8-23); Calcium 8.6 mg/dL (8.6-10.4); Carbon Dioxide 21 mmol/L (22-30); Chloride 99 mmol/L (96-108); Glomerular Filtration Rate 38; Glucose 94 mg/dL (70-105); Lactate Dehydrogenase 149 U/L (135-225); Phosphorous 3.2 mg/dL (2.5-4.5); Triglycerides 69 mg/dL (<150)
[2023-07-07] MEDS: LEVOTHYROXINE 88 MCG TABLET PO SCH (06:57)
[2023-07-07] MEDS: ENOXAPARIN 40 MG/0.4 ML SYRINGE SQ SCH (08:23)
[2023-07-07] MEDS: 0.9 % SODIUM CHLORIDE 500 ML IV ONE (08:31)
[2023-07-07 08:59] LABS: Band Neutrophils % 8 % (0-10); Lymphocytes % 4 % (15-49); Monocytes % (Manual) 8 % (1-12); Platelet Estimate NORMAL (Normal); RBC Morphology NORMAL (Normal); Segmented Neutrophils % 80 % (38-78)
[2023-07-07] MEDS: ACETAMINOPHEN 325 MG TABLET PO PRN (20:15)
[2023-07-08 06:20] LABS: Basophils # (Auto) 0.05 K/mcL (0.00-0.30); Basophils % (Auto) 0.3 % (0.0-2.0); Eosinophils # (Auto) 0.13 K/mcL (0.00-0.70); Eosinophils % (Auto) 0.7 % (0.0-7.0); Hemoglobin 10.9 g/dL (13.7-17.5); Lymphocytes # (Auto) 1.13 K/mcL (1.50-4.80); Mean Cell Volume 99.7 fL (80.0-100.0); Mean Corpuscular HGB Conc 29.5 g/dL (31.0-36.0); Mean Platelet Volume 9.8 fL (8.8-12.5); Monocytes # (Auto) 1.63 K/mcL (0.10-0.90); Monocytes % (Auto) 8.7 % (1.0-12.0); Neutrophils % (Auto) 83.9 % (38.0-78.0); Platelet Count 146 K/mcL (140-440); RBC 3.71 M/mcL (4.63-6.08); Red Cell Distribution Width 14.4 % (11.5-14.5); WBC 18.8 K/mcL (4.5-11.0)
[2023-07-08 06:49] LABS: Blood Urea Nitrogen 34 mg/dL (8-23); Calcium 8.2 mg/dL (8.6-10.4); Carbon Dioxide 22 mmol/L (22-30); Chloride 99 mmol/L (96-108); Glomerular Filtration Rate 35; Glucose 96 mg/dL (70-105)
[2023-07-08] MEDS: cefTRIAXone 1 GM VIAL IV SCH (11:14)
[2023-07-09 06:21] LABS: Hematocrit 35.4 % (40.1-51.0); Hemoglobin 10.9 g/dL (13.7-17.5); Mean Cell Volume 94.9 fL (80.0-100.0); Mean Corpuscular HGB Conc 30.8 g/dL (31.0-36.0); Mean Platelet Volume 10.1 fL (8.8-12.5); Platelet Count 193 K/mcL (140-440); RBC 3.73 M/mcL (4.63-6.08); Red Cell Distribution Width 13.9 % (11.5-14.5)
[2023-07-09 06:32] LABS: Band Neutrophils % 3 % (0-10); Eosinophils % (Manual) 4 % (0-7); Lymphocytes % 12 % (15-49); Monocytes % (Manual) 11 % (1-12); Platelet Estimate NORMAL (Normal); RBC Morphology NORMAL (Normal); Segmented Neutrophils % 70 % (38-78)
[2023-07-09 06:47] LABS: Blood Urea Nitrogen 37 mg/dL (8-23); Calcium 8.3 mg/dL (8.6-10.4); Carbon Dioxide 23 mmol/L (22-30); Chloride 101 mmol/L (96-108); Glomerular Filtration Rate 45; Glucose 103 mg/dL (70-105)
== END 2023-07-09 13:40 | disposition home or self-care (01) | DRG 872 ==
LOC: ED 11:20 → MEDSUR 20:17
PROVIDERS: ADMIT Internal Medicine; ATTEND Internal Medicine